=== PATIENT | male | born 1935 | race Caucasian/White ===

== ENCOUNTER 2018-03-13 19:58 | Inpatient (IN) ==
--- NOTE | 2018-03-13 21:01 | Emergency Department Note ---
Disposition Clinical Impression: Anemia Qualifiers: Anemia type: unspecified type Qualified Code(s): D64.9 - Anemia, unspecified Altered mental status Qualifiers: Altered mental status type: unspecified Qualified Code(s): R41.82 - Altered mental status, unspecified GI bleed Qualifiers: GI bleed type/associated pathology: unspecified gastrointestinal hemorrhage type Qualified Code(s): K92.2 - Gastrointestinal hemorrhage, unspecified Disposition: Admitted As Inpatient Condition: Fair Referrals: Arias Ch Jr, MD [Primary Care Provider] - Forms: ED Satisfaction Letter Time of Disposition: 22:34 General Adult HPI - General Chief complaint: ED Syncope Stated complaint: Bloody Stool Time Seen by Provider: 03/13/18 20:20 Source: patient, family, EMS Limitations: no limitations Nursing Notes Reviewed: Yes Vital Signs Reviewed: Yes - History of Present Illness HPI Narrative: Patient is an 82-year-old male that presents the emergency department due to altered mental status and blood in his stool. Patient states he is unsure why he is here at the emergency department however the daughter that is here in the emergency department with him states that today he began saying things that did not make sense and was acting differently. Family also reports that he did have some dark bloody stools today. Family states that he has never had dark bloody stools before they state that he has had bright red blood in his stool in the past which was due to hemorrhoids. Patient states that he has had a previous stroke which affected his left side. Patient states that he has not having any pain at this time however he states that he does not feel like he can eat due to not feeling very well but family states that he has been feeling nauseated and is afraid to eat because he feels like he is going to throw up. Pain Scale: 5 - Related Data Home Medications Medication Instructions Recorded Confirmed Aspirin [Lo-Dose Aspirin EC] 81 mg PO DAILY 02/17/18 02/17/18 Atorvastatin Calcium 80 mg PO HS 02/17/18 02/17/18 Clopidogrel [Plavix] 75 mg PO DAILY 02/17/18 02/17/18 Furosemide [Lasix] 40 mg PO DAILY 02/17/18 02/17/18 Gabapentin [Neurontin] 300 mg PO BID 02/17/18 02/17/18 Insulin ASPART [Novolog Flexpen] 0 units SQ TID 02/17/18 02/17/18 Insulin Glargine,Hum.rec.anlog 32 units SQ DAILY 02/17/18 02/17/18 [Lantus Solostar] Losartan Potassium [Cozaar] 100 mg PO DAILY 02/17/18 02/17/18 Metoprolol Tartrate [Lopressor] 50 mg PO BID 02/17/18 02/17/18 Potassium 99 mg PO DAILY 02/17/18 02/17/18 Tramadol HCl [Ultram] 50 mg PO BID PRN 02/17/18 02/17/18 Vit C/E/Zn/Coppr/Lutein/Zeaxan 1 cap PO DAILY 02/17/18 02/17/18 [Preservision Areds 2 Softgel] hydrALAZINE [HydrALAZINE] 10 mg PO TID 02/17/18 02/17/18 hydroCHLOROthiazide 25 mg PO DAILY 02/17/18 02/17/18 [Hydrochlorothiazide] Allergies Allergy/AdvReac Type Severity Reaction Status Date / Time iodine Allergy See Verified 02/17/18 12:08 Comments All systems ED: reviewed and negative except as stated. Constitutional: Reports: other (States that he generally does not feel well) Respiratory: Denies: dyspnea Gastrointestinal: Reports: nausea, vomiting, melena Past Medical History - Past Medical History Medical history: Reports: arthritis, coronary artery disease, CVA, diabetes, hyperlipidemia, hypertension, kidney stones, myocardial infarction Surgical history: Reports: angioplasty/stent, coronary bypass (CABG) Psychiatric history: Reports: no psych history - Social History Smoking Status: Unknown if ever smoked Smokeless Tobacco Status: No Alcohol use: Reports: none Drug use: Reports: none Physical Exam - General Limitations: no limitations General appearance: alert, in no apparent distress - Head Head exam: atraumatic, normocephalic - Eye Eye exam: Present: normal appearance, EOMI - Neck Neck exam: Present: normal inspection, full ROM, trachea midline - Respiratory Respiratory exam: Present: normal lung sounds bilaterally. Absent: respiratory distress, wheezes - Cardiovascular Cardiovascular exam: Present: normal rhythm, tachycardia, normal heart sounds, + S1, +S2 - Abdominal Exam Abdominal exam: Present: soft, Non-Tender, normal bowel sounds - Neurological Exam Neurological exam: Present: alert. Absent: oriented X3 (Patient is not oriented to time) - Expanded Neurological Exam Patient oriented to: Present: person, place. Absent: time Speech: Present: fluid speech Cranial nerves: EOM function (II, III, IV, ): Normal, facial sensation (V): Normal, facial palsy (VII): Normal, gag reflex (IX): Normal, spinal accessory function (XI): Normal, tongue deviation (XII): Normal Motor strength - LUE: 5/5 Motor strength - RUE: 5/5 Motor strength - LLE: 4/5 (Patient states that he has had a previous stroke that has affected his left side.) Motor strength - RLE: 5/5 - Psychiatric Psychiatric exam: Present: normal affect, normal mood - Skin Skin exam: Present: warm, dry, intact Course Vital Signs Temperature 98 F 03/13/18 20:04 Pulse Rate 100 03/13/18 20:04 Respiratory Rate 20 03/13/18 20:04 Blood Pressure 145/64 03/13/18 20:04 O2 Sat by Pulse Oximetry 94 03/13/18 20:04 Temperature 98 F 03/13/18 20:04 Pulse Rate 98 03/13/18 21:59 Respiratory Rate 16 03/13/18 21:59 Blood Pressure 140/61 03/13/18 21:59 O2 Sat by Pulse Oximetry 95 03/13/18 21:59 Oxygen Delivery Oxygen Delivery Room Air Medical Decision Making - MDM Narrative Medical decision making narrative: Due to the patient presented with altered mental status and possible GI bleed we will obtain a CBC, BMP, PT/INR, urinalysis EKG, chest x-ray and a CT of the head. The CT of the head showed no acute intracranial abnormality. The patient 's hemoglobin is now 7.9 however it had been 11.8 on 02/23/18. The urinalysis was negative for any infection. The chest x-ray showed no acute process. The patient will need to be admitted to the hospital for further evaluation and management. I called and spoke with the hospitalist who requested that we call and speak to who was ever on for active bleed. I called and spoke with Dr. Momin and she did not feel that there was anything to be done tonight and that she would see the patient in the morning. Patient will be given protonix here in the ED. I called and spoke with the hospitals that except the patient to their service. The patient be admitted to the hospital at this time for further evaluation and management. - Lab Data Lab results reviewed: Yes I reviewed the patient's lab results. Result diagrams: 03/13/18 21:26 03/13/18 21: Lab Results 03/13/18 03/13/18 03/13/18 Range/Units 21:02 21:26 21:26 WBC 11.8 H (4.3-11.1) K/mcL RBC 2.48 L (4.19-5.50) M/mcL Hgb 7.9 L (12.9-16.9) g/dL Hct 24.0 L (37.5-50.1) % MCV 96.8 (83.0-100.0) fL MCH 31.9 (28.0-33.3) pg MCHC 32.9 (31.6-35.5) g/dL RDW 14.8 H (11.5-14.5) % Plt Count 144 (140-400) K/mcL MPV 12.0 (9.4-12.4) fL Immature Gran % 0.6 (0-4) % Seg Neutrophils % 77.1 % Lymphocytes % 16.9 % Monocytes % 5.1 % Eosinophils % 0.1 % Basophils % 0.2 % Neutrophils # 9.1 H (1.6-8.9) K/mcL Lymphocytes # 2.0 (0.6-4.6) K/mcL Monocytes # 0.6 (0.0-1.3) K/mcL Eosinophils # 0.0 (0.0-0.6) K/mcL Basophils # 0.0 (0.0-0.2) K/mcL PT 12.8 H (9.4-12.1) Seconds INR 1.2 Sodium (136-145) mEq/L Potassium (3.5-5.1) mEq/L Chloride (98-107) mEq/L Carbon Dioxide (23-29) mEq/L BUN (8-23) mg/dL Creatinine (0.70-1.30) mg/dL Est GFR ( Amer) (> 60) Est GFR (Non-Af Amer) (> 60) BUN/Creatinine Ratio (6-26) Glucose (70-105) mg/dL Calculated Osmolality (280-300) Calcium (8.6-10.3) mg/dL Urine Color Yellow (Yellow) Urine Clarity Clear (Clear) Urine pH 5.5 (5.0-8.0) pH Units Ur Specific [place] 1.023 (1.010-1.025) Urine Protein Negative (Neg-Trace) mg/dL Urine Glucose (UA) Normal (Normal) mg/dL Urine Ketones Negative (Negative) mg/dL Urine Blood Negative (Negative) Urine Nitrite Negative (Negative) Urine Bilirubin Negative (Negative) Urine Urobilinogen Normal (Normal) mg/dL Ur Leukocyte Esterase Negative (Negative) Blood Type Antibody Screen 03/13/18 03/13/18 Range/Units 21:26 21:26 WBC (4.3-11.1) K/mcL RBC (4.19-5.50) M/mcL Hgb (12.9-16.9) g/dL Hct (37.5-50.1) % MCV (83.0-100.0) fL MCH (28.0-33.3) pg MCHC (31.6-35.5) g/dL RDW (11.5-14.5) % Plt Count (140-400) K/mcL MPV (9.4-12.4) fL Immature Gran % (0-4) % Seg Neutrophils % % Lymphocytes % % Monocytes % % Eosinophils % % Basophils % % Neutrophils # (1.6-8.9) K/mcL Lymphocytes # (0.6-4.6) K/mcL Monocytes # (0.0-1.3) K/mcL Eosinophils # (0.0-0.6) K/mcL Basophils # (0.0-0.2) K/mcL PT (9.4-12.1) Seconds INR Sodium 140 (136-145) mEq/L Potassium 4.4 (3.5-5.1) mEq/L Chloride 109 H (98-107) mEq/L Carbon Dioxide 22 L (23-29) mEq/L BUN 99 H (8-23) mg/dL Creatinine 1.79 H (0.70-1.30) mg/dL Est GFR ( Amer) 44 L (> 60) Est GFR (Non-Af Amer) 36 L (> 60) BUN/Creatinine Ratio 55 H (6-26) Glucose 283 H (70-105) mg/dL Calculated Osmolality 331 H (280-300) Calcium 9.5 (8.6-10.3) mg/dL Urine Color (Yellow) Urine Clarity (Clear) Urine pH (5.0-8.0) pH Units Ur Specific [place] (1.010-1.025) Urine Protein (Neg-Trace) mg/dL Urine Glucose (UA) (Normal) mg/dL Urine Ketones (Negative) mg/dL Urine Blood (Negative) Urine Nitrite (Negative) Urine Bilirubin (Negative) Urine Urobilinogen (Normal) mg/dL Ur Leukocyte Esterase (Negative) Blood Type O POSITIVE Antibody Screen NEGATIVE - Radiology Data Radiology results reviewed: Yes I reviewed the patient's radiology results. Chest X-Ray 03/13/18 20:20 IMPRESSION: No acute process. D/ / Chalo Fuller MD / Chalo Fuller MD Interpreting Provider: Chalo Fuller MD Head CT 03/13/18 20:21 IMPRESSION: No acute intracranial abnormality. Old left frontotemporal region infarct. Left chronic maxillary sinusitis. D/ / Barber Manley MD / Barber Manley MD Interpreting Provider: Barber Manley MD - EKG Data EKG #1 EKG attestation: Yes I reviewed and interpreted this EKG. EKG results narrative: EKG shows a sinus tachycardia at a rate of 100 bpm, ND interval 159, Q's duration of 91, QTC of 385 with a normal axis. There is no evidence of STEMI and EKG.
[2018-03-13 21:18] LABS: Bilirubin,Urine Negative (Negative); Blood,Urine Negative (Negative); Clarity,Urine Clear (Clear); Color,Urine Yellow (Yellow); Glucose,Urine (UA) Normal (Normal); Ketones,Urine Negative (Negative); Leukocyte Esterase,Urine Negative (Negative); Nitrite,Urine Negative (Negative); PH,Urine 5.5 pH Units (5.0-8.0); Protein,Urine Negative (Neg-Trace); Specific Gravity,Urine 1.023 (1.010-1.025); Urobilinogen,Urine Normal (Normal)
[2018-03-13 21:38] LABS: Basophils % 0.2 %; Eosinophils % 0.1 %; Immature Granulocytes % 0.6 % (0-4); Lymphocytes % 16.9 %; Mean Corpuscular HGB Conc 32.9 g/dL (31.6-35.5); Mean Corpuscular Hemoglobin 31.9 pg (28.0-33.3); Mean Corpuscular Volume 96.8 fL (83.0-100.0); Monocytes # 0.6 K/mcL (0.0-1.3); Monocytes % 5.1 %; Neutrophils # 9.1 K/mcL (1.6-8.9); Platelet Count 144 K/mcL (140-400); Red Blood Count 2.48 M/mcL (4.19-5.50); Red Cell Distribution Width 14.8 % (11.5-14.5); Segmented Neutrophils % 77.1 %
[2018-03-13 21:47] LABS: INR 1.2; Prothrombin Time 12.8 Seconds (9.4-12.1)
[2018-03-13 22:02] LABS: Calcium 9.5 mg/dL (8.6-10.3); Potassium 4.4 mEq/L (3.5-5.1)
[2018-03-13 22:03] LABS: Hemoglobin 7.9 g/dL (12.9-16.9)
[2018-03-13] MEDS ORDERED: Pantoprazole 40 MG VIAL IVP ONE (23:16)
[2018-03-13] MEDS ORDERED: traMADol 50 MG TABLET PO ONE (23:28)
[2018-03-14] MEDS ORDERED: Gabapentin 300 MG CAPSULE PO SCH (00:45)
[2018-03-14] MEDS ORDERED: *HR* Dextrose 50 % in Water (Syg) 50 ML SYRINGE IVP PRN (00:47)
[2018-03-14] MEDS ORDERED: Dextrose Gel 15 GM/37.5 ML TUBE PO PRN ×2 (00:47)
[2018-03-14] MEDS ORDERED: D5% in Water 1,000 ML IVC PRN (00:47)
--- NOTE | 2018-03-14 00:55 | Internal Med History&Physical ---
<Viv Alvarez H - Last Filed: 03/14/18 00:58> Date of Encounter: 03/14/18 Time of Encounter: 00:52 Internal Medicine - H&P: HPI Chief complaint: GI Bleed Admitted From: Emergency Dept Plans for Post Hospital Care: Home History of present illness: Mr. Manley is a 82 year old male with past medical history of CAD, CVA, DM 2, HLD, HTN, chronic kidney disease, MO /SP 3 stents and CABG, and CKD WHO PRESENTS TO [facility] ON 03/13/2018 WITH CHIEF COMPLAINTS OF NEW ONSET BLEEDING PER RECTUM. Per patient and patient's family at bedside, patient developed abdominal pain and cramping with bloody dark stool this evening. When patient's daughter arrived at his house, he was too weak to get off the toilet. His underwear were soaked with dark bloody stool. They presented to the emergency department around 8 PM. Patient denies any bowel movements since that time. Patient's daughter states patient has never had a colonoscopy, nor has he had a history of dark melanotic stools. He has only had bright red blood in his stool in the past which was attributed to hemorrhoids. Patient had a CVA in 2016 and has been taking Plavix ever since. Currently, patient is resting in apparent moderate distress. He has a stutter which his family states is exacerbated by anxiety and stress. Patient lost his one month ago. He reports he is freezing. Patient denies current nausea or vomiting. He does report hematochezia and melena. He reports fatigue, dizziness, and lightheadedness. He denies dysuria, hematuria, or urinary urgency. Past Med Surg Social Fam HX - Past Medical History Attestation: Yes The following information was validated with the patient. Source: patient, old records reviewed, obtained from family Medical history: arthritis, coronary artery disease, CVA, diabetes, hyperlipidemia, hypertension, kidney stones, myocardial infarction Psychiatric history: no psych history - Past Surgical History Surgical History: angioplasty/stent, coronary bypass (CABG) - Social History Smoking Status: Unknown if ever smoked Smokeless Tobacco Status: No Alcohol use: none Drug use: none Internal Medicine - H&P: Meds Aspirin [Lo-Dose Aspirin EC] 81 mg PO DAILY 02/17/18 [History] Atorvastatin Calcium 80 mg PO DAILY 02/17/18 [History] Clopidogrel [Plavix] 75 mg PO DAILY 02/17/18 [History] Furosemide [Lasix] 40 mg PO DAILY 02/17/18 [History] Gabapentin [Neurontin] 300 mg PO BID 02/17/18 [History] Insulin ASPART [Novolog Flexpen] 0 units SQ TID 02/17/18 [History] Insulin Glargine,Hum.rec.anlog [Lantus Solostar] 32 units SQ DAILY 02/17/18 [ History] Losartan Potassium [Cozaar] 100 mg PO DAILY 02/17/18 [History] Potassium 99 mg PO DAILY 02/17/18 [History] Tramadol HCl [Ultram] 50 mg PO BID PRN 02/17/18 [History] Vit C/E/Zn/Coppr/Lutein/Zeaxan [Preservision Areds 2 Softgel] 1 cap PO DAILY [History] Docusate [Colace] 100 mg PO DAILY 03/14/18 [History] Metoprolol Succinate [Toprol Xl] 50 mg PO BID 03/14/18 [History] 3 Allergy/AdvReac Type Severity Reaction Status Date / Time iodine Allergy See Verified 02/17/18 12:08 Comments All Systems PM: A 10-system review of systems was performed and is negative for pertinent findings except as documented above in the HPI. - Constitutional Constitutional: chills, lethargy, weakness, no fever(s), no night sweats, no weight gain, no weight loss - EENT Nose, mouth and throat: no nasal congestion, no nasal discharge, no sinus pressure - Cardiovascular Cardiovascular ROS IM: dyspnea, dyspnea on exertion, lightheadedness, no chest pain, no claudication, no diaphoresis, no edema, no irregular heart rhythm, no orthopnea, no palpitations, no paroxysmal nocturnal dyspnea, no syncope - Respiratory Respiratory: no cough, no dyspnea, no chest congestion - Gastrointestinal Gastrointestinal: abdominal pain (epigastric/mid upper abdominal), heartburn, hematochezia, loose stools, melena, no coffee ground emesis, no constipation, no diarrhea, no hematemesis, no vomiting - Genitourinary Genitourinary ROS male: no difficulty urinating, no dysuria, no urinary frequency, no urinary hesitancy - Integumentary Integumentary IM: no rash, no jaundice - Neurological Neurological ROS: focal weakness (patient has residual left sided weakness secondary to CVA 2 years ago) - Psychiatric Psychiatric: depression - Constitutional Vitals: Temp Pulse Resp BP Pulse Ox 98.6 F 94 17 142/62 95 03/14/18 00:41 03/14/18 00:41 03/14/18 00:41 03/14/18 00:41 03/14/18 00:41 General appearance: Present: cooperative, mild distress, A&O X 3, pleasant, answers questions appropriately - Head Head exam: Present: atraumatic, normocephalic - Eye Eye exam: Present: sclera anicteric - Neck Neck exam general surgery: Present: supple, trachea midline. Absent: lymphadenopathy - Respiratory Respiratory exam: Present: CTAB. Absent: accessory muscle use, rales, rhonchi, wheezes - Cardiovascular Cardiovascular exam: Present: +S1, +S2, tachycardia. Absent: diastolic murmur, gallop, rubs, systolic murmur - GI/Abdominal GI/Abdominal exam: Present: normal bowel sounds, soft, tenderness (epigastric/ upper mid abdominal), no peritoneal signs. Absent: distended, firm, guarding, rebound, rigid - Extremities Exam Extremities exam: Present: pedal edema (1+), warm, radial pulses palpable and symmetrical. Absent: calf tenderness, cyanotic Additional comments: Left upper extremity in a slight from recent operation - Neurological Exam Neurological exam: Present: alert, CN II-XII intact, oriented X3. Absent: strengths equal and symetr throughout (Patient with diminished strength in left upper extremity), pronater drift, facial droop, speech deficit Internal Med - H&P Results - Labs CBC & Chem 7: 03/13/18 21:26 03/13/18 21:26 - Assessment and plan (1) GI bleed Current Visit: Yes Status: Acute Assessment and plan: 82-year-old male with multiple medical comorbidities here with acute onset bleeding and melanotic stools. Hgb 7.9 and BUN 99, suspect rapid transit upper GI bleed. -Patient with signs and symptoms of acute blood loss anemia. -Consult to on-call GI provider this weekend from the emergency department. -Patient made NPO. -Transfuse 2 units PRBCs -Gentle hydration at 75 mg per hour as patient with history of chronic kidney disease and CHF. -Hold home medications including Plavix. -Pantoprazole drip. -Telemetry, Q1hr vitals, Q4 hour H&H. Qualifiers: GI bleed type/associated pathology: unspecified gastrointestinal hemorrhage type Qualified Code(s): K92.2 - Gastrointestinal hemorrhage, unspecified (2) Acute blood loss anemia Current Visit: Yes Status: Acute Assessment and plan: See plan above under GI bleed. (3) CAD (coronary artery disease) Current Visit: Yes Status: Acute Assessment and plan: Hold home medications for now. Qualifiers: Coronary Disease-Associated Artery/Lesion type: unspecified vessel or lesion type [place] vs. transplanted heart: [place] heart Associated angina: without angina Qualified Code(s): I25.10 - Atherosclerotic heart disease of [place] coronary artery without angina pectoris (4) HTN (hypertension) Current Visit: Yes Status: Acute Assessment and plan: Hold all medications for now. Qualifiers: Hypertension type: essential hypertension Qualified Code(s): I10 - Essential (primary) hypertension (5) Diabetes Current Visit: Yes Status: Chronic Assessment and plan: We will start patient on medium dose sliding scale insulin coverage and ACHS Accu-Cheks. 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: with half-way use Diabetes mellitus complication status: with kidney complications Diabetes mellitus complication detail: with chronic kidney disease Chronic kidney disease stage: unspecified stage Qualified Code(s): E11.22 - Type 2 diabetes mellitus with diabetic chronic kidney disease; Z79.4 - [facility] (current) use of insulin; Z79.4 - [facility] (current) use of insulin; Z79.4 - [facility] (current) use of insulin; Z79.4 - [facility] (current) use of insulin (6) History of CVA (cerebrovascular accident) Current Visit: Yes Status: Acute Assessment and plan: Hold plavix. (7) H/O elbow surgery Current Visit: Yes Status: Acute Assessment and plan: Elbow excision/surgery in January 2018. -Patient still in sling. -supportive nursing care. - Time Spent With Patient Total time spent is greater than 50% in coordination of care (as documented) at patient's floor/unit and/or counseling patient: <Rupert Wells - Last Filed: 03/14/18 06:01> Date of Encounter: 03/14/18 Internal Medicine - H&P: [facility] History of present illness: Mr. Manley is a 82 year old male All Systems PM: A 10-system review of systems was performed and is negative for pertinent findings except as documented above in the HPI. - Constitutional Vitals: Temp Pulse Resp BP Pulse Ox 98.0 F 79 14 122/62 97 03/14/18 04:56 03/14/18 04:56 03/14/18 04:56 03/14/18 04:56 03/14/18 04:56 Internal Med - H&P Results - Labs CBC & Chem 7: 03/14/18 04:30 03/13/18 21:26 Labs: Short CBC 03/14/18 03/14/18 Range/Units 01:21 04:30 WBC 10.0 (4.3-11.1) K/mcL Hgb 6.7 L 7.5 L (12.9-16.9) g/dL Hct 21.4 L 23.1 L (37.5-50.1) % Plt Count 118 L (140-400) K/mcL Neutrophils # 7.1 (1.6-8.9) K/mcL - Attending Attestation I have seen and examined this patient independently. I have discussed with resident physician Dr. Castañeda regarding the management plan. Agree with the documentation. - Assessment and plan (1) GI bleed Current Visit: Yes Status: Acute Qualifiers: GI bleed type/associated pathology: unspecified gastrointestinal hemorrhage type Qualified Code(s): K92.2 - Gastrointestinal hemorrhage, unspecified (2) Acute blood loss anemia Current Visit: Yes Status: Acute (3) CAD (coronary artery disease) Current Visit: Yes Status: Acute Qualifiers: Coronary Disease-Associated Artery/Lesion type: unspecified vessel or lesion type [place] vs. transplanted heart: [place] heart Associated angina: without angina Qualified Code(s): I25.10 - Atherosclerotic heart disease of [place] coronary artery without angina pectoris (4) HTN (hypertension) Current Visit: Yes Status: Acute Qualifiers: Hypertension type: essential hypertension Qualified Code(s): I10 - Essential (primary) hypertension (5) Diabetes Current Visit: Yes Status: Chronic 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: with rat exterminator use Diabetes mellitus complication status: with kidney complications Diabetes mellitus complication detail: with chronic kidney disease Chronic kidney disease stage: unspecified stage Qualified Code(s): E11.22 - Type 2 diabetes mellitus with diabetic chronic kidney disease; Z79.4 - [facility] (current) use of insulin; Z79.4 - [facility] (current) use of insulin; Z79.4 - [facility] (current) use of insulin; Z79.4 - [employer] (current) use of insulin (6) History of CVA (cerebrovascular accident) Current Visit: Yes Status: Acute (7) H/O elbow surgery Current Visit: Yes Status: Acute - Time Spent With Patient Total time spent is greater than 50% in coordination of care (as documented) at patient's floor/unit and/or counseling patient:
[2018-03-14] MEDS ORDERED: 0.9 % Sodium Chloride 250 ML ONE ×2 (01:26→04:39)
[2018-03-14] MEDS: Pantoprazole 40 MG in 0.9 % Sodium Chloride Mini Bag 100 ML IVC SCH ×2 (01:41→06:20)
[2018-03-14 02:04] LABS: Hematocrit 21.4 % (37.5-50.1); Hemoglobin 6.7 g/dL (12.9-16.9)
[2018-03-14] MEDS ORDERED: Gabapentin 300 MG CAPSULE PO ONE ×2 (02:12→13:44)
[2018-03-14] MEDS ORDERED: Ondansetron 4 MG/2 ML VIAL IVP PRN (02:33)
[2018-03-14 04:54] LABS: Basophils % 0.3 %; Eosinophils % 0.3 %; Hematocrit 23.1 % (37.5-50.1); Hemoglobin 7.5 g/dL (12.9-16.9); Immature Granulocytes % 0.4 % (0-4); Lymphocytes # 2.2 K/mcL (0.6-4.6); Lymphocytes % 21.4 %; Mean Corpuscular HGB Conc 32.5 g/dL (31.6-35.5); Mean Corpuscular Hemoglobin 31.1 pg (28.0-33.3); Mean Corpuscular Volume 95.9 fL (83.0-100.0); Monocytes # 0.7 K/mcL (0.0-1.3); Monocytes % 7.1 %; Neutrophils # 7.1 K/mcL (1.6-8.9); Platelet Count 118 K/mcL (140-400); Red Blood Count 2.41 M/mcL (4.19-5.50); Red Cell Distribution Width 14.4 % (11.5-14.5); Segmented Neutrophils % 70.5 %
[2018-03-14] MEDS: Insulin LISPRO 300 UNITS/3 ML VIAL SQ SCH ×3 (06:57→17:57)
[2018-03-14] MEDS ORDERED: Insulin LISPRO 300 UNITS/3 ML VIAL SQ SCH (07:30)
[2018-03-14 08:41] LABS: Hematocrit 25.8 % (37.5-50.1); Hemoglobin 8.5 g/dL (12.9-16.9)
--- NOTE | 2018-03-14 08:42 | General Surgery Progress Note ---
Date of Encounter: 03/14/18 Objective Vital Signs - Last 8 Hours Temp Pulse Resp BP Pulse Ox 03/14/18 07:40 97.7 F 82 16 125/62 92 Intake and Output 03/13/18 03/14/18 03/14/18 23:59 07:59 15:59 Intake Total 800 / 1500 Balance 800 / 1150 Intake: IV Fluids 100 / 100 Protonix 40 MG In 0.9 % Sodium 100 / 100 Chloride (Mini-Bag +) 100 ML @ 20 mls/hr IVC .Q5H JESSICA Rx#: [id number] Blood Product 700 / 1050 Rbcs Leuko Poor As-1 Unit 700 / 1050 [id number] Other: Blood Glucose* 221 - Labs 03/14/18 04:30 03/13/18 21:26 Consult Discharge Plan - Plan Referrals: Arias Ch Jr, MD [Primary Care Provider] -
--- NOTE | 2018-03-14 08:43 | General Surgery Consult Note ---
<Stoney Johnson - Last Filed: 03/14/18 10:36> Date of Encounter: 03/14/18 Assessment and Plan (1) Acute blood loss anemia Current Visit: Yes Status: Acute 1 day new onset blood in stool Not on anticoagulation No hx colonoscopy VSS Plan: EGD/Colonoscopy with Dr. Momin Thursday 03/15 Will initiate bowel prep and clear liquid diet today Past Med Surg Social Fam HX - Past Medical History Medical history: arthritis, coronary artery disease, CVA, diabetes, hyperlipidemia, hypertension, kidney stones, myocardial infarction Psychiatric history: no psych history - Past Surgical History Surgical History: angioplasty/stent, coronary bypass (CABG) - Social History Smoking Status: Unknown if ever smoked Smokeless Tobacco Status: No Alcohol use: none Drug use: none Medications and Allergies Aspirin [Lo-Dose Aspirin EC] 81 mg PO DAILY 02/17/18 [History] Atorvastatin Calcium 80 mg PO DAILY 02/17/18 [History] Clopidogrel [Plavix] 75 mg PO DAILY 02/17/18 [History] Furosemide [Lasix] 40 mg PO DAILY 02/17/18 [History] Gabapentin [Neurontin] 300 mg PO BID 02/17/18 [History] Insulin ASPART [Novolog Flexpen] 0 units SQ TID 02/17/18 [History] Insulin Glargine,Hum.rec.anlog [Lantus Solostar] 32 units SQ DAILY 02/17/18 [ History] Losartan Potassium [Cozaar] 100 mg PO DAILY 02/17/18 [History] Potassium 99 mg PO DAILY 02/17/18 [History] Tramadol HCl [Ultram] 50 mg PO BID PRN 02/17/18 [History] Vit C/E/Zn/Coppr/Lutein/Zeaxan [Preservision Areds 2 Softgel] 1 cap PO DAILY [History] Docusate [Colace] 100 mg PO DAILY 03/14/18 [History] Metoprolol Succinate [Toprol Xl] 50 mg PO BID 03/14/18 [History] 3 Allergy/AdvReac Type Severity Reaction Status Date / Time iodine Allergy See Verified 02/17/18 12:08 Comments Review of Systems All systems PM: The remainder of the systems were reviewed and are negative General Surgery Exam Initial Vital Signs Temp Pulse Resp BP Pulse Ox 98 F 100 20 145/64 94 03/13/18 20:04 04/13/18 20:04 03/13/18 20:04 03/13/18 20:04 03/13/18 20:04 Exam Initial Vital Signs Temp Pulse Resp BP Pulse Ox 98 F 100 20 145/64 94 03/13/18 20:04 03/13/18 20:04 03/13/18 20:04 03/13/18 20:04 03/13/18 20:04 Results - Labs 03/14/18 08:33 03/13/18 21:26 Abnormal lab results RBC 2.41 M/mcL (4.19-5.50) L 03/14/18 04:30 Hgb 7.5 g/dL (12.9-16.9) L 03/14/18 04:30 Hct 23.1 % (37.5-50.1) L 03/14/18 04:30 Plt Count 118 K/mcL (140-400) L 03/14/18 04:30 PT 12.8 Seconds (9.4-12.1) H 03/13/18 21:26 Chloride 109 mEq/L (98-107) H 03/13/18 21:26 Carbon Dioxide 22 mEq/L (23-29) L 03/13/18 21:26 BUN 99 mg/dL (8-23) H 03/13/18 21:26 Creatinine 1.79 mg/dL (0.70-1.30) H 03/13/18 21:26 Est GFR ( Amer) 44 (> 60) L 03/13/18 21:26 Est GFR (Non-Af Amer) 36 (> 60) L 03/13/18 21:26 BUN/Creatinine Ratio 55 (6-26) H 03/13/18 21:26 Glucose 283 mg/dL (70-105) H 03/13/18 21:26 POC Glucose 221 mg/dL (70-99) H 03/14/18 06:56 Calculated Osmolality 331 (280-300) H 03/13/18 21:26 All other labs normal. Consult Discharge Plan - Plan Referrals: Arias Ch Jr, MD [Primary Care Provider] - <Joslyn Momin - Last Filed: 03/14/18 13:11> Date of Encounter: 03/14/18 Time of Encounter: 12:58 Assessment and Plan (1) Anemia Current Visit: Yes Status: Acute patient is very week and deconditioned, I do not feel he can tolerate an entire bowel prep in 1 day, will do half of bowel prep today and half tomorrow along with clears, will plan EGD/ colonoscopy this coming friday, risks and benefits discussed with patient and his daughter and they both wish to proceed. clears bowel prep PT/OT monitor Hb, transfuse as needed Qualifiers: Anemia type: unspecified type Qualified Code(s): D64.9 - Anemia, unspecified (2) CAD (coronary artery disease) Current Visit: Yes Status: Chronic holding asa/plavix Qualifiers: Coronary Disease-Associated Artery/Lesion type: unspecified vessel or lesion type [place] vs. transplanted heart: [place] heart Associated angina: without angina Qualified Code(s): I25.10 - Atherosclerotic heart disease of [place] coronary artery without angina pectoris (3) HTN (hypertension) Current Visit: Yes Status: Chronic controlled, management per hospitalist Qualifiers: Hypertension type: essential hypertension Qualified Code(s): I10 - Essential (primary) hypertension (4) Diabetes Current Visit: Yes Status: Chronic controlled, management per hospitalist Qualifiers: Diabetes mellitus type: type 2 Diabetes mellitus correction insulin use: with correction use Diabetes mellitus complication status: with kidney complications Diabetes mellitus complication detail: with chronic kidney disease Chronic kidney disease stage: unspecified stage Qualified Code(s): E11.22 - Type 2 diabetes mellitus with diabetic chronic kidney disease; Z79.4 - terminal superintendent (current) use of insulin; Z79.4 - terminal superintendent (current) use of insulin; Z79.4 - terminal superintendent (current) use of insulin; Z79.4 - [facility] (current) use of insulin (5) History of CVA (cerebrovascular accident) Current Visit: Yes Status: Acute History of Present Illness Consult date: 03/14/18 Reason for consult: endoscopy Requesting physician: Marky Warren History of present illness: patient is seen in his hospital room with his daughter. He states he has had melanotic stools for the last few days. He states for some time (unable to tell me how long) he has been passing bright red blood from the rectum with bowel movements intermittently. He complains of mid abdominal pain (which he cant describe when prompted) for several days, pain is intermittent. Denies nausea of emesis. Patient is very poor historian. No hematemesis. Patient has had issues with constipation "for some time" and takes generic stool softeners daily while at home. Patient has never had egd or colonoscopy previously. He has no [facility] colon or rectal cancer. He fell at his wifes at beginning of january and tore his tricep from his bone, had repair. Patient does take aspirin and plavix at home, previous CVA. Past Med Surg Social Fam HX - Past Medical History Source: patient - Family History Grandmother History Unknown: Yes Review of Systems All systems PM: reviewed and no additional remarkable complaints except as stated All systems PM: The remainder of the systems were reviewed and are negative General Surgery Exam Initial Vital Signs Temp Pulse Resp BP Pulse Ox 98 F 100 20 145/64 94 03/13/18 20:04 03/13/18 20:04 03/13/18 20:04 03/13/18 20:04 03/13/18 20:04 - General physical appearance well developed, chronically ill, other (pale) - Eyes PERRL, normal ocular movement - ENT normal mucosa, normocephalic - Neck trachea midline - Respiratory normal expansion, clear to auscultation - Cardiovascular Cardiovascular exam: Present: RRR - Abdomen Abdomen general surgery: Present: bowel sounds present, soft, non tender - Integumentary Integumentary general surgery: Present: warm and dry, no abnormal pigmentation, other (pale) - Neurologic Present: CN 2-12 grossly intact - Musculoskeletal Present: other (gnerealized weakness and deconditioning) - Psychiatric Psychiatric general surgery: Present: A&Ox3 Exam Initial Vital Signs Temp Pulse Resp BP Pulse Ox 98 F 100 20 145/64 94 03/13/18 20:04 03/13/18 20:04 03/13/18 20:04 03/13/18 20:04 03/13/18 20:04 Results - Labs 03/14/18 11:21 03/14/18 11:21 Abnormal lab results RBC 2.75 M/mcL (4.19-5.50) L 03/14/18 11:21 Hgb 8.7 g/dL (12.9-16.9) L 03/14/18 11:21 Hct 26.2 % (37.5-50.1) L 03/14/18 11:21 RDW 14.8 % (11.5-14.5) H 03/14/18 11:21 Plt Count 107 K/mcL (140-400) L 03/14/18 11:21 PT 12.8 Seconds (9.4-12.1) H 03/13/18 21:26 Chloride 114 mEq/L (98-107) H 03/14/18 11:21 BUN 89 mg/dL (8-23) H 03/14/18 11:21 Creatinine 1.87 mg/dL (0.70-1.30) H 03/14/18 11:21 Est GFR ( Amer) 42 (> 60) L 03/14/18 11:21 Est GFR (Non-Af Amer) 35 (> 60) L 03/14/18 11:21 BUN/Creatinine Ratio 48 (6-26) H 03/14/18 11:21 Glucose 134 mg/dL (70-105) H 03/14/18 11:21 POC Glucose 221 mg/dL (70-99) H 03/14/18 06:56 Calculated Osmolality 325 (280-300) H 03/14/18 11:21 Diabetes panel 03/14/18 Range/Units 11:21 Sodium 143 (136-145) mEq/L Potassium 4.3 (3.5-5.1) mEq/L Chloride 114 H (98-107) mEq/L Carbon Dioxide 26 (23-29) mEq/L BUN 89 H (8-23) mg/dL Creatinine 1.87 H (0.70-1.30) mg/dL Glucose 134 H (70-105) mg/dL Calcium 9.0 (8.6-10.3) mg/dL Calcium panel 03/14/18 Range/Units 11:21 Calcium 9.0 (8.6-10.3) mg/dL Pituitary panel 03/14/18 Range/Units 11:21 Sodium 143 (136-145) mEq/L Potassium 4.3 (3.5-5.1) mEq/L Chloride 114 H (98-107) mEq/L Carbon Dioxide 26 (23-29) mEq/L BUN 89 H (8-23) mg/dL Creatinine 1.87 H (0.70-1.30) mg/dL Glucose 134 H (70-105) mg/dL Calcium 9.0 (8.6-10.3) mg/dL Adrenal panel 03/14/18 Range/Units 11:21 Sodium 143 (136-145) mEq/L Potassium 4.3 (3.5-5.1) mEq/L Chloride 114 H (98-107) mEq/L Carbon Dioxide 26 (23-29) mEq/L BUN 89 H (8-23) mg/dL Creatinine 1.87 H (0.70-1.30) mg/dL Glucose 134 H (70-105) mg/dL Calcium 9.0 (8.6-10.3) mg/dL All other labs normal.
[2018-03-14] MEDS: 0.9 % Sodium Chloride 1,000 ML IVC SCH ×2 (09:29→21:43)
[2018-03-14] MEDS ORDERED: Polyethylene Glycol 3350 255 GM POWDER PO ONE ×4 (10:33→17:30)
--- NOTE | 2018-03-14 10:50 | Internal Med Progress Note ---
<Mazin Baker - Last Filed: 03/14/18 13:13> Date of Encounter: 03/14/18 Time of Encounter: 10:46 - Assessment and plan (1) GI bleed Current Visit: Yes Status: Acute Assessment and plan: Patient has multiple day hx of blood from rectum and blood in stools. Patient is also on superintendent container terminal xarelto for previous CVA. Patient received 2 units this AM which stopped running around 7:45 AM, symptomatically has mild improvement. Patient was discussed with resident on surgery. Surgery plans to scope tomorrow. - bowel prep today, and planned scope Friday; expect hgb to have mild drop from bowel prep. - clear liquids, per surgery - hold plavix; no NSAIDS or ASA - Protonix IVP - continue tele, closely follow vitals - continue serial CBC q6hr; BMP in the AM - continue gentle hydration; balance between CKD, and CHF - give RBC if hgb is <7.0 Qualifiers: GI bleed type/associated pathology: unspecified gastrointestinal hemorrhage type Qualified Code(s): K92.2 - Gastrointestinal hemorrhage, unspecified (2) Acute blood loss anemia Current Visit: Yes Status: Acute Assessment and plan: See plan above under GI bleed. (3) CAD (coronary artery disease) Current Visit: Yes Status: Chronic Assessment and plan: Hold home medications for now. Qualifiers: Coronary Disease-Associated Artery/Lesion type: unspecified vessel or lesion type [place] vs. transplanted heart: [place] heart Associated angina: without angina Qualified Code(s): I25.10 - Atherosclerotic heart disease of [place] coronary artery without angina pectoris (4) HTN (hypertension) Current Visit: Yes Status: Chronic Assessment and plan: Hold all medications for now. Qualifiers: Hypertension type: essential hypertension Qualified Code(s): I10 - Essential (primary) hypertension (5) Diabetes Current Visit: Yes Status: Chronic Assessment and plan: We will start patient on medium dose sliding scale insulin coverage and ACHS Accu-Cheks. Qualifiers: Diabetes mellitus type: type 2 Diabetes mellitus superintendent container terminal insulin use: with superintendent container terminal use Diabetes mellitus complication status: with kidney complications Diabetes mellitus complication detail: with chronic kidney disease Chronic kidney disease stage: unspecified stage Qualified Code(s): E11.22 - Type 2 diabetes mellitus with diabetic chronic kidney disease; Z79.4 - retirement (current) use of insulin; Z79.4 - retirement (current) use of insulin; Z79.4 - superintendent container terminal (current) use of insulin; Z79.4 - retirement (current) use of insulin (6) History of CVA (cerebrovascular accident) Current Visit: Yes Status: Acute Assessment and plan: Hold plavix. (7) H/O elbow surgery Current Visit: Yes Status: Acute Assessment and plan: Elbow excision/surgery in January 2018. -Patient still in sling. -supportive nursing care. (8) Acute kidney injury superimposed on chronic kidney disease Current Visit: Yes Status: Acute Assessment and plan: Cr on admission was 1.79 and BUN of 99. Azotemia is most likely in the setting of current GI bleed. If does not resolve with GI bleed, will further workup. U /A was unremarkable. Baseline GFR is ~40 and has most likely decreased recently. - monitor renal function - strict I/O - avoid nephrotoxins - gentle hydration (do not want to exacerbate CHF) (9) CHF (congestive heart failure) Current Visit: Yes Status: Acute Assessment and plan: Patient has known history of CHF. All medications are held for now. - Continue tele monitoring - serial volume status evaluations - gentle hydrations (balance between CHF and CHEVY) Qualifiers: Qualified Code(s): I50.9 - Heart failure, unspecified (10) DVT prophylaxis Current Visit: Yes Status: Acute Assessment and plan: Mechanical 2/2 setting of GI bleed (11) Neuropathy Current Visit: Yes Status: Acute Assessment and plan: nurse notified that patient has burning in legs. Will restart home gabapentin. - Time Spent With Patient Total time spent is greater than 50% in coordination of care (as documented) at patient's floor/unit and/or counseling patient: - Subjective Interval history: Mr Manley is an 82 yo M w/ pmh of CAD, CVA on plavix, T2DM HLD, HTN, CKD, IA w / 3 stents + CABG who presented to [facility] with extreme tiredness that started about 3 days prior to coming to the hospital and 1 day of heavy blood stools. In ED his hgb was 7.9. He was transfused 2 unit prbc this AM, and he reports still feeling tired. Patient is seen and examined. Patient denies chest pain, sob, abdominal pain, nausea, vomiting, coughing up blood, or blood in his urine. All other ROS are negative - Constitutional Vitals: Temp Pulse Resp BP Pulse Ox 97.7 F 82 16 125/62 92 03/14/18 07:40 03/14/18 07:40 03/14/18 07:40 03/14/18 07:40 03/14/18 07:40 General appearance: Present: cooperative, mild distress, A&O X 3, pleasant, obese, answers questions appropriately - Head Additional comments: grossly pale appearing - Respiratory Respiratory exam: Present: CTAB - Cardiovascular Cardiovascular exam: Present: RRR - GI/Abdominal GI/Abdominal exam: Present: hypoactive bowel sounds. Absent: guarding, rebound - Extremities Exam Extremities exam: Absent: pedal edema Internal Medicine: Result - Labs CBC & Chem 7: 03/14/18 11:21 03/14/18 11:21 Labs: Short CBC 03/14/18 Range/Units 08:33 Hgb 8.5 L (12.9-16.9) g/dL Hct 25.8 L (37.5-50.1) % - ABG Interpretation ABG results: PT/INR, D-dimer PT 12.8 Seconds (9.4-12.1) H 03/13/18 21:26 Consult Discharge Plan - Plan Referrals: Arias Ch Jr, MD [Primary Care Provider] - <Kulwinder Quigley - Last Filed: 03/14/18 18:50> Date of Encounter: 03/14/18 - Assessment and plan (1) GI bleed Current Visit: Yes Status: Acute Qualifiers: GI bleed type/associated pathology: unspecified gastrointestinal hemorrhage type Qualified Code(s): K92.2 - Gastrointestinal hemorrhage, unspecified (2) Acute blood loss anemia Current Visit: Yes Status: Acute (3) CAD (coronary artery disease) Current Visit: Yes Status: Chronic Qualifiers: Coronary Disease-Associated Artery/Lesion type: unspecified vessel or lesion type [place] vs. transplanted heart: [place] heart Associated angina: without angina Qualified Code(s): I25.10 - Atherosclerotic heart disease of [place] coronary artery without angina pectoris (4) HTN (hypertension) Current Visit: Yes Status: Chronic Qualifiers: Hypertension type: essential hypertension Qualified Code(s): I10 - Essential (primary) hypertension (5) Diabetes Current Visit: Yes Status: Chronic Qualifiers: Diabetes mellitus type: type 2 Diabetes mellitus alf insulin use: with alf use Diabetes mellitus complication status: with kidney complications Diabetes mellitus complication detail: with chronic kidney disease Chronic kidney disease stage: unspecified stage Qualified Code(s): E11.22 - Type 2 diabetes mellitus with diabetic chronic kidney disease; Z79.4 - superintendent container terminal (current) use of insulin; Z79.4 - retirement (current) use of insulin; Z79.4 - superintendent container terminal (current) use of insulin; Z79.4 - retirement (current) use of insulin (6) History of CVA (cerebrovascular accident) Current Visit: Yes Status: Acute (7) H/O elbow surgery Current Visit: Yes Status: Acute (8) Acute kidney injury superimposed on chronic kidney disease Current Visit: Yes Status: Acute (9) CHF (congestive heart failure) Current Visit: Yes Status: Acute Qualifiers: Qualified Code(s): I50.9 - Heart failure, unspecified (10) DVT prophylaxis Current Visit: Yes Status: Acute (11) Neuropathy Current Visit: Yes Status: Acute - Time Spent With Patient Total time spent is greater than 50% in coordination of care (as documented) at patient's floor/unit and/or counseling patient: - Constitutional Vitals: Temp Pulse Resp BP Pulse Ox 98.5 F 74 16 134/61 99 03/14/18 15:41 03/14/18 15:41 03/14/18 15:41 03/14/18 15:41 03/14/18 15:41 Internal Medicine: Result - Labs CBC & Chem 7: 03/14/18 18:03 03/14/18 11:21 Labs: Short CBC 03/14/18 03/14/18 03/14/18 Range/Units 08:33 11:21 18:03 WBC 8.9 7.9 (4.3-11.1) K/mcL Hgb 8.5 L 8.7 L 8.4 L (12.9-16.9) g/dL Hct 25.8 L 26.2 L 25.4 L (37.5-50.1) % Plt Count 107 L 109 L (140-400) K/mcL BMP 03/14/18 11:21 Sodium 143 Potassium 4.3 Chloride 114 H Carbon Dioxide 26 BUN 89 H Creatinine 1.87 H Glucose 134 H Calcium 9.0 - ABG Interpretation ABG results: PT/INR, D-dimer PT 12.8 Seconds (9.4-12.1) H 03/13/18 21:26 - Attending Attestation I examined this patient and my medical decision-making was reviewed with the Resident Physician on 03/14/18. I agree with the documented findings, disposition and treatment plan as described except to the extent set forth below. Mr Manley was admitted earlier today with acute GI bleed. He is hemodynamically stable at this time. He is taking prep for colonoscopy on Friday. Exam alert Comfortable Mucus membranes dry Heart not tachy Plan Colonoscopy Friday.
[2018-03-14] MEDS: Pantoprazole 40 MG VIAL IVP SCH (11:14)
[2018-03-14 11:34] LABS: Hematocrit 26.2 % (37.5-50.1); Hemoglobin 8.7 g/dL (12.9-16.9); Mean Corpuscular HGB Conc 33.2 g/dL (31.6-35.5); Mean Corpuscular Hemoglobin 31.6 pg (28.0-33.3); Mean Corpuscular Volume 95.3 fL (83.0-100.0); Mean Platelet Volume 11.6 fL (9.4-12.4); Platelet Count 107 K/mcL (140-400); Red Blood Count 2.75 M/mcL (4.19-5.50); Red Cell Distribution Width 14.8 % (11.5-14.5)
[2018-03-14 11:54] LABS: Potassium 4.3 mEq/L (3.5-5.1)
[2018-03-14] MEDS: Sucralfate 1 GM TABLET PO SCH ×3 (13:50→20:48)
[2018-03-14 18:16] LABS: Hematocrit 25.4 % (37.5-50.1); Hemoglobin 8.4 g/dL (12.9-16.9); Mean Corpuscular HGB Conc 33.1 g/dL (31.6-35.5); Mean Corpuscular Hemoglobin 31.6 pg (28.0-33.3); Mean Corpuscular Volume 95.5 fL (83.0-100.0); Mean Platelet Volume 11.6 fL (9.4-12.4); Platelet Count 109 K/mcL (140-400); Red Blood Count 2.66 M/mcL (4.19-5.50); Red Cell Distribution Width 15.3 % (11.5-14.5)
[2018-03-14] MEDS: Gabapentin 300 MG CAPSULE PO SCH (20:48)
[2018-03-14] MEDS: traMADol 50 MG TABLET PO PRN (21:33)
[2018-03-15] MEDS: Insulin LISPRO 300 UNITS/3 ML VIAL SQ SCH ×4 (00:47→17:42)
[2018-03-15 01:01] LABS: Red Cell Distribution Width 15.3 % (11.5-14.5)
[2018-03-15 01:02] LABS: Hematocrit 24.3 % (37.5-50.1); Hemoglobin 8.1 g/dL (12.9-16.9); Immature Platelets 2.3 % (1.1-6.1); Mean Corpuscular HGB Conc 33.3 g/dL (31.6-35.5); Mean Corpuscular Hemoglobin 32.1 pg (28.0-33.3); Mean Corpuscular Volume 96.4 fL (83.0-100.0); Red Blood Count 2.52 M/mcL (4.19-5.50)
[2018-03-15 06:12] LABS: Hematocrit 24.1 % (37.5-50.1); Red Blood Count 2.46 M/mcL (4.19-5.50); Red Cell Distribution Width 15.3 % (11.5-14.5)
[2018-03-15 06:14] LABS: Hemoglobin 7.8 g/dL (12.9-16.9); Immature Platelets 2.6 % (1.1-6.1); Mean Corpuscular HGB Conc 32.4 g/dL (31.6-35.5); Mean Corpuscular Hemoglobin 31.7 pg (28.0-33.3); Mean Platelet Volume 11.3 fL (9.4-12.4)
[2018-03-15 06:35] LABS: Calcium 8.5 mg/dL (8.6-10.3); Potassium 3.9 mEq/L (3.5-5.1)
[2018-03-15] MEDS: Pantoprazole 40 MG VIAL IVP SCH (09:15)
[2018-03-15] MEDS: Sucralfate 1 GM TABLET PO SCH ×4 (09:15→21:31)
[2018-03-15] MEDS: Gabapentin 300 MG CAPSULE PO SCH ×2 (09:15→21:31)
[2018-03-15] MEDS: 0.9 % Sodium Chloride 1,000 ML IVC SCH ×2 (11:09→19:29)
[2018-03-15] MEDS: traMADol 50 MG TABLET PO PRN (11:55)
--- NOTE | 2018-03-15 11:58 | Internal Med Progress Note ---
<Mazin Baker - Last Filed: 03/15/18 11:54> Date of Encounter: 03/15/18 Time of Encounter: 09:00 - Assessment and plan (1) GI bleed Current Visit: Yes Status: Acute Assessment and plan: Patient has multiple day hx of blood from rectum and blood in stools. 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 Patient received 2 units yesterday AM which stopped running around 7:45 AM, symptomatically has mild improvement. hgb remained relatively stable at 7.8. - per surgery, bowel prep today, and planned scope Friday; expect hgb to have mild drop from bowel prep. - clear liquids, per surgery - hold plavix; no NSAIDS or ASA - Protonix IVP - continue tele, closely follow vitals - continue serial CBC q6hr; BMP in the AM - continue gentle hydration; balance between CKD, and CHF - give RBC if hgb is <7.0 Qualifiers: GI bleed type/associated pathology: unspecified gastrointestinal hemorrhage type Qualified Code(s): K92.2 - Gastrointestinal hemorrhage, unspecified (2) Acute blood loss anemia Current Visit: Yes Status: Acute Assessment and plan: See plan above under GI bleed. (3) CAD (coronary artery disease) Current Visit: Yes Status: Chronic Assessment and plan: Hold home medications for now. Qualifiers: Coronary Disease-Associated Artery/Lesion type: unspecified vessel or lesion type [place] vs. transplanted heart: [place] heart Associated angina: without angina Qualified Code(s): I25.10 - Atherosclerotic heart disease of [place] coronary artery without angina pectoris (4) HTN (hypertension) Current Visit: Yes Status: Chronic Assessment and plan: Hold all medications for now. Qualifiers: Hypertension type: essential hypertension Qualified Code(s): I10 - Essential (primary) hypertension (5) Diabetes Current Visit: Yes Status: Chronic Assessment and plan: We will start patient on medium dose sliding scale insulin coverage and ACHS Accu-Cheks. 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 (7) H/O elbow surgery Current Visit: Yes Status: Acute Assessment and plan: Elbow excision/surgery in January 2018. -Patient still in sling. -supportive nursing care. (8) Acute kidney injury superimposed on chronic kidney disease Current Visit: Yes Status: Acute Assessment and plan: Cr on admission was 1.79 and BUN of 99. Cr continues to improve today. Azotemia is most likely in the setting of current GI bleed. If does not resolve with GI bleed, will further workup. U/A was unremarkable. Baseline GFR is ~40 and has most likely decreased recently. - monitor renal function - strict I/O - avoid nephrotoxins - gentle hydration (do not want to exacerbate CHF) (9) CHF (congestive heart failure) Current Visit: Yes Status: Acute Assessment and plan: Patient has known history of CHF. All medications are held for now. - Continue tele monitoring - serial volume status evaluations - gentle hydrations (balance between CHF and [place]) Qualifiers: Qualified Code(s): I50.9 - Heart failure, unspecified (10) DVT prophylaxis Current Visit: Yes Status: Acute Assessment and plan: Mechanical 2/2 setting of GI bleed (11) Neuropathy Current Visit: Yes Status: Acute Assessment and plan: nurse notified that patient has burning in legs. Will restart home gabapentin. 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 Patient is seen and examined. He continues to feel tired, but less so then yesterday. Patient denies chest pain, sob, abdominal pain, nausea, vomiting, coughing up blood, or blood in his urine. All other ROS are negative - Constitutional Vitals: Temp Pulse Resp BP Pulse Ox 97.9 F 68 16 121/65 94 03/15/18 07:37 03/15/18 07:37 03/15/18 07:37 03/15/18 07:37 03/15/18 07:37 General appearance: Present: cooperative, mild distress, A&O X 3, pleasant, obese, answers questions appropriately Exam: grossly pale appearing - Head Head exam: Present: atraumatic - ENT ENT exam: Present: mucous membranes dry - Neck Neck exam general surgery: Present: supple - Respiratory Respiratory exam: Present: CTAB - Cardiovascular Cardiovascular exam: Present: RRR - GI/Abdominal GI/Abdominal exam: Present: hypoactive bowel sounds - Extremities Exam Extremities exam: Absent: pedal edema Internal Medicine: Result - Labs CBC & Chem 7: 03/15/18 05:55 03/15/18 05:55 Labs: Short CBC 03/14/18 03/15/18 03/15/18 Range/Units 18:03 00:35 05:55 WBC 7.9 7.4 6.3 (4.3-11.1) K/mcL Hgb 8.4 L 8.1 L 7.8 L (12.9-16.9) g/dL Hct 25.4 L 24.3 L 24.1 L (37.5-50.1) % Plt Count 109 L 96 L 94 L (140-400) K/mcL BMP 03/14/18 03/15/18 11:21 05:55 Sodium 143 146 H Potassium 4.3 3.9 Chloride 114 H 114 H Carbon Dioxide 26 25 BUN 89 H 58 H Creatinine 1.87 H 1.52 H Glucose 134 H 137 H Calcium 9.0 8.5 L - ABG Interpretation ABG results: PT/INR, D-dimer PT 12.8 Seconds (9.4-12.1) H 03/13/18 21:26 Consult Discharge Plan - Plan Referrals: Arias Ch Jr, MD [Primary Care Provider] - <Kulwinder Quigley - Last Filed: 03/15/18 14:12> Date of Encounter: 03/15/18 - Assessment and plan (1) GI bleed Current Visit: Yes Status: Acute Qualifiers: GI bleed type/associated pathology: melena Qualified Code(s): K92.1 - Melena (2) Acute blood loss anemia Current Visit: Yes Status: Acute (3) CAD (coronary artery disease) Current Visit: Yes Status: Chronic Qualifiers: Coronary Disease-Associated Artery/Lesion type: [place] artery [place] vs. transplanted heart: [place] heart Associated angina: without angina Qualified Code(s): I25.10 - Atherosclerotic heart disease of [place] coronary artery without angina pectoris (4) HTN (hypertension) Current Visit: Yes Status: Chronic Qualifiers: Hypertension type: essential hypertension Qualified Code(s): I10 - Essential (primary) hypertension (5) Diabetes Current Visit: Yes Status: Chronic Qualifiers: Diabetes mellitus type: type 2 Diabetes mellitus snf insulin use: with equipment operator intermodal yard use Diabetes mellitus complication status: with kidney complications Diabetes mellitus complication detail: with chronic kidney disease Chronic kidney disease stage: stage 3 (moderate) Qualified Code(s): E11.22 - Type 2 diabetes mellitus with diabetic chronic kidney disease; N18.3 - Chronic kidney disease, stage 3 (moderate); N18.3 - Chronic kidney disease, stage 3 (moderate); Z79.4 - shelter (current) use of insulin; 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; 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; Z79.4 - shelter (current) use of insulin (6) History of CVA (cerebrovascular accident) Current Visit: Yes Status: Chronic (7) H/O elbow surgery Current Visit: Yes Status: Chronic (8) Acute kidney injury superimposed on chronic kidney disease Current Visit: Yes Status: Acute (9) CHF (congestive heart failure) Current Visit: Yes Status: Chronic Qualifiers: Heart failure type: unspecified Qualified Code(s): I50.9 - Heart failure, unspecified (10) DVT prophylaxis Current Visit: Yes Status: Acute (11) Neuropathy Current Visit: Yes Status: Acute - Time Spent With Patient Total time spent is greater than 50% in coordination of care (as documented) at patient's floor/unit and/or counseling patient: - Constitutional Vitals: Temp Pulse Resp BP Pulse Ox 98.1 F 68 16 151/59 97 03/15/18 12:06 03/15/18 07:37 03/15/18 12:06 03/15/18 12:06 03/15/18 12:06 Internal Medicine: Result - Labs CBC & Chem 7: 03/15/18 11:57 03/15/18 05:55 Labs: Short CBC 03/14/18 03/15/18 03/15/18 Range/Units 18:03 00:35 05:55 WBC 7.9 7.4 6.3 (4.3-11.1) K/mcL Hgb 8.4 L 8.1 L 7.8 L (12.9-16.9) g/dL Hct 25.4 L 24.3 L 24.1 L (37.5-50.1) % Plt Count 109 L 96 L 94 L (140-400) K/mcL 03/15/18 Range/Units 11:57 WBC 9.4 (4.3-11.1) K/mcL Hgb 9.1 L (12.9-16.9) g/dL Hct 27.8 L (37.5-50.1) % Plt Count 121 L (140-400) K/mcL BMP 03/15/18 05:55 Sodium 146 H Potassium 3.9 Chloride 114 H Carbon Dioxide 25 BUN 58 H Creatinine 1.52 H Glucose 137 H Calcium 8.5 L - ABG Interpretation ABG results: PT/INR, D-dimer PT 12.8 Seconds (9.4-12.1) H 03/13/18 21:26 - Attending Attestation I examined this patient and my medical decision-making was reviewed with the Resident Physician on 03/15/18. I agree with the documented findings, disposition and treatment plan as described except to the extent set forth below. Mr Manley is currently admitted for acute GI bleed. He remains moderate to high risk due to potential for worsening clinical status. Mr Manley is very tired. He was awakened earlier to have blood drawn. No fever. Tolerating prep at this point. Has received 2 units PRBCs and H/H is improving. Exam Alert comfortable at this time Mucus membranes dry Heart not tachy now Lungs diminished Abd soft I/P 1. GI Bleed - plan for endoscopy tomorrow 2. anemia Further diagnoses and plan as above.
[2018-03-15 12:14] LABS: Hematocrit 27.8 % (37.5-50.1); Hemoglobin 9.1 g/dL (12.9-16.9); Mean Corpuscular HGB Conc 32.7 g/dL (31.6-35.5); Mean Corpuscular Hemoglobin 32.3 pg (28.0-33.3); Mean Corpuscular Volume 98.6 fL (83.0-100.0); Mean Platelet Volume 11.5 fL (9.4-12.4); Platelet Count 121 K/mcL (140-400); Red Blood Count 2.82 M/mcL (4.19-5.50); Red Cell Distribution Width 15.3 % (11.5-14.5)
--- NOTE | 2018-03-15 12:40 | General Surgery Progress Note ---
<Stoney Johnson - Last Filed: 03/15/18 13:50> Date of Encounter: 03/15/18 Time of Encounter: 12:40 - Assessment and Plan (1) Acute blood loss anemia Current Visit: Yes Status: Acute Admitted early 03/14 new onset blood in stool Hgb 9.1 (03/14 7.8, 8.1, 8.4, 8.7, 8.5, 7.5, 6.7, 03/13 7.9) s/p 2U transfusion early am 03/14 Not on anticoagulation No hx colonoscopy VSS Hgb 03/15 am 9.1 (8.4) Plan: EGD/Colonoscopy with Dr. Momin Friday 03/16 after completion of two day bowel prep Continue clear liquid diet, will be NPO at midnight. Subjective Narrative: Mr. Manley was seen and evaluted at bedside. He is tolerating his bowel prep, no nausea/vomiting, good urine output, last recorded stool was loose and black. He denies fevers, shortness of breath, chest discomfort. Objective Vital Signs - Last 8 Hours Temp Pulse Resp BP Pulse Ox 03/15/18 12:06 98.1 F 16 151/59 97 03/15/18 07:37 97.9 F 68 16 121/65 94 Intake and Output 03/14/18 03/15/18 03/15/18 23:59 07:59 15:59 Intake Total 1220 / 1220 1120 / 1120 Output Total 650 / 650 Balance 1220 / 1220 -650 / -650 1120 / 1120 Intake: IV Fluids 1000 / 1000 1000 / 1000 0.9 % Sodium Chloride 1,000 ML 1000 / 1000 1000 / 1000 @ 75 mls/hr IVC .[id number] [facility] Rx #:[id number] Oral 220 / 220 120 / 120 Output: Urine 650 / 650 Other: Stool Size Large Stool Consistency loose Stool Color Black # Voids 1 # Bowel Movements 1 Weight 97.8 kg Blood Glucose* 188 135 204 Patient Weight 03/15/18 23:59 Weight 97.8 kg - General physical appearance well developed, well nourished, no distress - Eyes normal ocular movement - ENT normal mucosa - Neck Neck exam: no lymphadectomy - Respiratory normal expansion, normal respiratory effort, clear to auscultation - Cardiovascular Cardiovascular exam: Present: RRR - Abdomen Abdomen: Present: bowel sounds present, soft, non tender - Neurologic normal sensation - Psychiatric oriented to person, oriented to place, memory intact, other (speech impacted by stutter) - Labs 03/15/18 11:57 03/15/18 05:55 Diabetes panel 03/15/18 Range/Units 05:55 Sodium 146 H (136-145) mEq/L Potassium 3.9 (3.5-5.1) mEq/L Chloride 114 H (98-107) mEq/L Carbon Dioxide 25 (23-29) mEq/L BUN 58 H (8-23) mg/dL Creatinine 1.52 H (0.70-1.30) mg/dL Glucose 137 H (70-105) mg/dL Calcium 8.5 L (8.6-10.3) mg/dL Calcium panel 03/15/18 Range/Units 05:55 Calcium 8.5 L (8.6-10.3) mg/dL Pituitary panel 03/15/18 Range/Units 05:55 Sodium 146 H (136-145) mEq/L Potassium 3.9 (3.5-5.1) mEq/L Chloride 114 H (98-107) mEq/L Carbon Dioxide 25 (23-29) mEq/L BUN 58 H (8-23) mg/dL Creatinine 1.52 H (0.70-1.30) mg/dL Glucose 137 H (70-105) mg/dL Calcium 8.5 L (8.6-10.3) mg/dL Adrenal panel 03/15/18 Range/Units 05:55 Sodium 146 H (136-145) mEq/L Potassium 3.9 (3.5-5.1) mEq/L Chloride 114 H (98-107) mEq/L Carbon Dioxide 25 (23-29) mEq/L BUN 58 H (8-23) mg/dL Creatinine 1.52 H (0.70-1.30) mg/dL Glucose 137 H (70-105) mg/dL Calcium 8.5 L (8.6-10.3) mg/dL Consult Discharge Plan - Plan Referrals: Arias Ch Jr, MD [Primary Care Provider] - <Joslyn Momin - Last Filed: 03/15/18 17:19> Date of Encounter: 03/15/18 - Assessment and Plan (1) Anemia Current Visit: Yes Status: Acute plan EGD/colonoscopy tomorrow npo midnight clears till midnight patient has been transfused 2 units yesterday, Hb stable, monitor Qualifiers: Anemia type: unspecified type Qualified Code(s): D64.9 - Anemia, unspecified Subjective Patient reports: no new complaints, tolerating liquids well, bowel movement Objective Vital Signs - Last 8 Hours Temp Pulse Resp BP Pulse Ox 03/15/18 16:16 98.0 F 66 16 161/67 98 03/15/18 12:06 98.1 F 16 151/59 97 Intake and Output 03/15/18 03/15/18 03/15/18 07:59 15:59 23:59 Intake Total 1120 / 1120 Output Total 650 / 650 Balance -650 / -650 1120 / 1120 Intake: IV Fluids 1000 / 1000 0.9 % Sodium Chloride 1,000 ML 1000 / 1000 @ 75 mls/hr IVC .[id number] [facility] Rx #:[id number] Oral 120 / 120 Output: Urine 650 / 650 Other: Stool Size Moderate Stool Consistency liquid Stool Color Black # Bowel Movements 1 Weight 97.8 kg Blood Glucose* 135 204 Patient Weight 03/15/18 23:59 Weight 97.8 kg - General physical appearance well developed, well nourished, no distress - Eyes normal ocular movement - ENT normal mucosa, normocephalic - Neck Neck exam: trachea midline - Respiratory normal expansion, normal respiratory effort - Cardiovascular Cardiovascular exam: Present: RRR - Abdomen Abdomen: Present: bowel sounds present, soft, non tender - Integumentary no growths - Neurologic CN 2-12 grossly intact - Musculoskeletal normal posture - Psychiatric oriented to time, oriented to person, oriented to place, memory intact - Labs 03/15/18 11:57 03/15/18 05:55 Diabetes panel 03/15/18 Range/Units 05:55 Sodium 146 H (136-145) mEq/L Potassium 3.9 (3.5-5.1) mEq/L Chloride 114 H (98-107) mEq/L Carbon Dioxide 25 (23-29) mEq/L BUN 58 H (8-23) mg/dL Creatinine 1.52 H (0.70-1.30) mg/dL Glucose 137 H (70-105) mg/dL Calcium 8.5 L (8.6-10.3) mg/dL Calcium panel 03/15/18 Range/Units 05:55 Calcium 8.5 L (8.6-10.3) mg/dL Pituitary panel 03/15/18 Range/Units 05:55 Sodium 146 H (136-145) mEq/L Potassium 3.9 (3.5-5.1) mEq/L Chloride 114 H (98-107) mEq/L Carbon Dioxide 25 (23-29) mEq/L BUN 58 H (8-23) mg/dL Creatinine 1.52 H (0.70-1.30) mg/dL Glucose 137 H (70-105) mg/dL Calcium 8.5 L (8.6-10.3) mg/dL Adrenal panel 03/15/18 Range/Units 05:55 Sodium 146 H (136-145) mEq/L Potassium 3.9 (3.5-5.1) mEq/L Chloride 114 H (98-107) mEq/L Carbon Dioxide 25 (23-29) mEq/L BUN 58 H (8-23) mg/dL Creatinine 1.52 H (0.70-1.30) mg/dL Glucose 137 H (70-105) mg/dL Calcium 8.5 L (8.6-10.3) mg/dL - Attending Attestation I examined this patient and my medical decision-making was reviewed with the Resident Physician. I agree with the documented findings, disposition and treatment plan as described except to the extent set forth below.
[2018-03-15] MEDS ORDERED: Artificial Tears SOLN 15 ML BOTTLE BOTH EYES PRN (12:54)
[2018-03-15] MEDS: MORPHINE SUL Oral CONC 10 MG/0.5 ML ORAL.SYG SL PRN (16:04)
[2018-03-15 18:37] LABS: Hematocrit 24.4 % (37.5-50.1); Hemoglobin 7.9 g/dL (12.9-16.9); Immature Platelets 2.6 % (1.1-6.1); Mean Corpuscular HGB Conc 32.4 g/dL (31.6-35.5); Mean Corpuscular Hemoglobin 32.2 pg (28.0-33.3); Mean Corpuscular Volume 99.6 fL (83.0-100.0); Mean Platelet Volume 11.8 fL (9.4-12.4); Red Blood Count 2.45 M/mcL (4.19-5.50); Red Cell Distribution Width 15.2 % (11.5-14.5)
[2018-03-15] MEDS: Pantoprazole 40 MG in 0.9 % Sodium Chloride Mini Bag 100 ML IVC SCH (19:29)
[2018-03-16] MEDS: Insulin LISPRO 300 UNITS/3 ML VIAL SQ SCH ×4 (00:13→17:10)
[2018-03-16 00:24] LABS: Hematocrit 23.1 % (37.5-50.1); Hemoglobin 7.6 g/dL (12.9-16.9); Immature Platelets 2.9 % (1.1-6.1); Mean Corpuscular HGB Conc 32.9 g/dL (31.6-35.5); Mean Corpuscular Hemoglobin 32.2 pg (28.0-33.3); Mean Corpuscular Volume 97.9 fL (83.0-100.0); Mean Platelet Volume 11.4 fL (9.4-12.4); Red Blood Count 2.36 M/mcL (4.19-5.50); Red Cell Distribution Width 15.2 % (11.5-14.5)
[2018-03-16 00:43] LABS: BUN/Creatinine Ratio 27 (6-26); Blood Urea Nitrogen 36 mg/dL (8-23); Carbon Dioxide 26 mEq/L (23-29); Chloride 115 mEq/L (98-107); Glucose 143 mg/dL (70-105); Osmolality,Calculated 311 (280-300); Potassium 3.7 mEq/L (3.5-5.1); Sodium 145 mEq/L (136-145); eGFR For African Americans > 60 (> 60); eGFR For Non-African Americans 52 (> 60)
[2018-03-16] MEDS: 0.9 % Sodium Chloride 1,000 ML IVC SCH ×2 (05:51→21:05)
[2018-03-16 06:52] LABS: Hemoglobin 7.8 g/dL (12.9-16.9)
[2018-03-16 06:54] LABS: Hematocrit 24.1 % (37.5-50.1); Immature Platelets 3.7 % (1.1-6.1); Mean Corpuscular HGB Conc 32.4 g/dL (31.6-35.5); Mean Corpuscular Hemoglobin 32.2 pg (28.0-33.3); Mean Corpuscular Volume 99.6 fL (83.0-100.0); Mean Platelet Volume 11.6 fL (9.4-12.4); Red Blood Count 2.42 M/mcL (4.19-5.50)
[2018-03-16] MEDS: MORPHINE SUL Oral CONC 10 MG/0.5 ML ORAL.SYG SL PRN ×2 (08:34→17:18)
[2018-03-16] MEDS: Sucralfate 1 GM TABLET PO SCH ×4 (08:34→21:05)
[2018-03-16] MEDS: Gabapentin 300 MG CAPSULE PO SCH ×2 (08:34→21:05)
[2018-03-16] MEDS: Pantoprazole 40 MG VIAL IVP SCH (08:38)
--- NOTE | 2018-03-16 11:16 | Internal Med Progress Note ---
<Mazin Baker - Last Filed: 03/16/18 15:37> Date of Encounter: 03/16/18 Time of Encounter: 11:13 - Assessment and plan (1) GI bleed Current Visit: Yes Status: Acute Assessment and plan: Patient has multiple day hx of blood from rectum and blood in stools. 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 after receiving 2 units of blood earlier during hospitalization, hgb has remained stable. - will follow surgery recommondations on EGD/colonoscopy (most likely tomorrow) - clear liquids, per surgery - hold plavix; no NSAIDS or ASA - Protonix IVP - continue tele, closely follow vitals - continue serial CBC q6hr; BMP in the AM - continue gentle hydration; balance between CKD, and CHF - give RBC if hgb is <7.0 Qualifiers: GI bleed type/associated pathology: melena Qualified Code(s): K92.1 - Melena (2) Acute blood loss anemia Current Visit: Yes Status: Acute Assessment and plan: See plan above under GI bleed. (3) CAD (coronary artery disease) Current Visit: Yes Status: Chronic Assessment and plan: Hold home medications for now. Qualifiers: Coronary Disease-Associated Artery/Lesion type: [place] artery [place] vs. transplanted heart: [place] heart Associated angina: without angina Qualified Code(s): I25.10 - Atherosclerotic heart disease of [place] coronary artery without angina pectoris (4) HTN (hypertension) Current Visit: Yes Status: Chronic Assessment and plan: Hold all medications for now. Qualifiers: Hypertension type: essential hypertension Qualified Code(s): I10 - Essential (primary) hypertension (5) Diabetes Current Visit: Yes Status: Chronic Assessment and plan: We will start patient on medium dose sliding scale insulin coverage and ACHS Accu-Cheks. Qualifiers: Diabetes mellitus type: type 2 Diabetes mellitus senior living insulin use: with senior living use Diabetes mellitus complication status: with kidney complications Diabetes mellitus complication detail: with chronic kidney disease Chronic kidney disease stage: stage 3 (moderate) Qualified Code(s): E11.22 - Type 2 diabetes mellitus with diabetic chronic kidney disease; N18.3 - Chronic kidney disease, stage 3 (moderate); N18.3 - Chronic kidney disease, stage 3 (moderate); Z79.4 - terminal superintendent (current) use of insulin; Z79.4 - terminal superintendent (current) use of insulin; Z79.4 - USP (current) use of insulin; Z79.4 - terminal superintendent (current) use of insulin (6) History of CVA (cerebrovascular accident) Current Visit: Yes Status: Chronic Assessment and plan: Hold plavix. (7) H/O elbow surgery Current Visit: Yes Status: Chronic Assessment and plan: Elbow excision/surgery in January 2018. -Patient still in sling. -supportive nursing care. (8) Acute kidney injury superimposed on chronic kidney disease Current Visit: Yes Status: Acute Assessment and plan: Cr on admission was 1.79 and BUN of 99. Cr continues to improve today. Azotemia is most likely in the setting of current GI bleed. If does not resolve with GI bleed, will further workup. U/A was unremarkable. Baseline GFR is ~40 and has most likely decreased recently. - monitor renal function - strict I/O - avoid nephrotoxins - gentle hydration (do not want to exacerbate CHF) (9) CHF (congestive heart failure) Current Visit: Yes Status: Chronic Assessment and plan: Patient has known history of CHF. All medications are held for now. - Continue tele monitoring - serial volume status evaluations - gentle hydrations (balance between CHF and [place]) Qualifiers: Heart failure type: unspecified Qualified Code(s): I50.9 - Heart failure, unspecified (10) DVT prophylaxis Current Visit: Yes Status: Acute Assessment and plan: Mechanical 2/2 setting of GI bleed (11) Neuropathy Current Visit: Yes Status: Acute Assessment and plan: nurse notified that patient has burning in legs. Will restart home gabapentin. added on morphine SL yesterday. currently controlled. 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 Patient is seen and examined. Patient had some increased generalized pain and peripheral neuropathy yesterday, and was started on morphine sl. Pain has been controlled since. Patient denies chest pain, sob, abdominal pain, nausea, vomiting, coughing up blood, or blood in his urine. All other ROS are negative - Constitutional Vitals: Temp Pulse Resp BP Pulse Ox 98.0 F 65 16 145/65 97 03/16/18 07:32 03/16/18 07:32 03/16/18 07:32 03/16/18 07:32 03/16/18 07:32 General appearance: Present: cooperative, mild distress, A&O X 3, pleasant, obese, answers questions appropriately - Head Head exam: Present: atraumatic, normocephalic - ENT ENT exam: Present: mucous membranes dry - Respiratory Respiratory exam: Present: CTAB - Cardiovascular Cardiovascular exam: Present: RRR - GI/Abdominal GI/Abdominal exam: Present: hypoactive bowel sounds. Absent: distended, firm, guarding - Extremities Exam Extremities exam: Absent: pedal edema Internal Medicine: Result - Labs CBC & Chem 7: 03/16/18 11:49 03/16/18 00:10 Labs: Short CBC 03/15/18 03/15/18 03/16/18 Range/Units 11:57 18:18 00:10 WBC 9.4 5.5 5.6 (4.3-11.1) K/mcL Hgb 9.1 L 7.9 L 7.6 L (12.9-16.9) g/dL Hct 27.8 L 24.4 L 23.1 L (37.5-50.1) % Plt Count 121 L 95 L 97 L (140-400) K/mcL 03/16/18 Range/Units 06:17 WBC 5.2 (4.3-11.1) K/mcL Hgb 7.8 L (12.9-16.9) g/dL Hct 24.1 L (37.5-50.1) % Plt Count 91 L (140-400) K/mcL BMP 03/16/18 00:10 Sodium 145 Potassium 3.7 Chloride 115 H Carbon Dioxide 26 BUN 36 H Creatinine 1.32 H Glucose 143 H Calcium 8.0 L - ABG Interpretation ABG results: PT/INR, D-dimer PT 12.8 Seconds (9.4-12.1) H 03/13/18 21:26 Consult Discharge Plan - Plan Referrals: Arias Ch Jr, MD [Primary Care Provider] - <Kulwinder Quigley - Last Filed: 03/16/18 19:23> Date of Encounter: 03/16/18 - Assessment and plan (1) GI bleed Current Visit: Yes Status: Acute Qualifiers: GI bleed type/associated pathology: melena Qualified Code(s): K92.1 - Melena (2) Acute blood loss anemia Current Visit: Yes Status: Acute (3) CAD (coronary artery disease) Current Visit: Yes Status: Chronic Qualifiers: Coronary Disease-Associated Artery/Lesion type: [place] artery [place] vs. 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 use Diabetes mellitus complication status: with kidney complications Diabetes mellitus complication detail: with chronic kidney disease Chronic kidney disease stage: stage 3 (moderate) Qualified Code(s): E11.22 - Type 2 diabetes mellitus with diabetic chronic kidney disease; N18.3 - Chronic kidney disease, stage 3 (moderate); N18.3 - Chronic kidney disease, stage 3 (moderate); Z79.4 - terminal superintendent (current) use of insulin; Z79.4 - USP (current) use of insulin; Z79.4 - terminal superintendent (current) use of insulin; Z79.4 - terminal superintendent (current) use of insulin (6) History of CVA (cerebrovascular accident) Current Visit: Yes Status: Chronic (7) H/O elbow surgery Current Visit: Yes Status: Chronic (8) Acute kidney injury superimposed on chronic kidney disease Current Visit: Yes Status: Acute (9) CHF (congestive heart failure) Current Visit: Yes Status: Chronic Qualifiers: Heart failure type: unspecified Qualified Code(s): I50.9 - Heart failure, unspecified (10) DVT prophylaxis Current Visit: Yes Status: Acute (11) Neuropathy Current Visit: Yes Status: Acute - Time Spent With Patient Total time spent is greater than 50% in coordination of care (as documented) at patient's floor/unit and/or counseling patient: - Constitutional Vitals: Temp Pulse Resp BP Pulse Ox 98.9 F 64 16 148/66 98 03/16/18 19:07 03/16/18 19:07 03/16/18 19:07 03/16/18 19:07 03/16/18 19:07 Internal Medicine: Result - Labs CBC & Chem 7: 03/16/18 11:49 03/16/18 00:10 Labs: Short CBC 03/16/18 03/16/18 03/16/18 Range/Units 00:10 06:17 11:49 WBC 5.6 5.2 5.5 (4.3-11.1) K/mcL Hgb 7.6 L 7.8 L 8.1 L (12.9-16.9) g/dL Hct 23.1 L 24.1 L 25.6 L (37.5-50.1) % Plt Count 97 L 91 L 100 L (140-400) K/mcL BMP 03/16/18 00:10 Sodium 145 Potassium 3.7 Chloride 115 H Carbon Dioxide 26 BUN 36 H Creatinine 1.32 H Glucose 143 H Calcium 8.0 L - ABG Interpretation ABG results: PT/INR, D-dimer PT 12.8 Seconds (9.4-12.1) H 03/13/18 21:26 - Attending Attestation I examined this patient and my medical decision-making was reviewed with the Resident Physician on 03/16/18. I agree with the documented findings, disposition and treatment plan as described except to the extent set forth below. Mr Manley is currently admitted for acute GI bleed and anemia. He remains moderate to high risk due to potential for worsening clinical status. Mr Manley was not clear for endoscopy today so rescheduled for tomorrow. No fever. Feels weak. Exam alert Comfortable Mucus membranes dry Heart distant Lungs diminished I/P 1. GI bleed 2. Anemia Further diagnoses and plan as above.
[2018-03-16 12:00] LABS: Hematocrit 25.6 % (37.5-50.1); Hemoglobin 8.1 g/dL (12.9-16.9); Mean Corpuscular HGB Conc 31.6 g/dL (31.6-35.5); Mean Corpuscular Hemoglobin 31.4 pg (28.0-33.3); Mean Corpuscular Volume 99.2 fL (83.0-100.0); Mean Platelet Volume 10.9 fL (9.4-12.4); Platelet Count 100 K/mcL (140-400); Red Blood Count 2.58 M/mcL (4.19-5.50)
--- NOTE | 2018-03-16 12:15 | General Surgery Progress Note ---
Date of Encounter: 03/16/18 Time of Encounter: 12:15 - Assessment and Plan (1) Acute blood loss anemia Current Visit: Yes Status: Acute Admitted early 03/14 new onset blood in stool Hgb 9.1 (03/14 7.8, 8.1, 8.4, 8.7, 8.5, 7.5, 6.7, 03/13 7.9) s/p 2U transfusion early am 03/14; transfusions per primary team. Not on anticoagulation No hx colonoscopy VSS Hgb 03/16 am 8.1. He was scheduled for EGD and colonoscopy today, but bedside RN notes incokplete prep. He was given an enema which has not resolved the issue. Plan: Cancel EGD/colonoscopy for today. Reschedule for 03/17/2018. Leydi citrate 296 ML's times 1. May have clear liquid diet today. No red dye. NPO after midnight. Subjective Patient reports: no new complaints (States he is "just worn out."), voiding w/o difficulty, flatus, bowel movement, afebrile Objective Vital Signs - Last 8 Hours Temp Pulse Resp BP Pulse Ox 03/16/18 11:16 98.6 F 67 16 167/61 98 03/16/18 07:32 98.0 F 65 16 145/65 97 Intake and Output 03/15/18 03/16/18 03/16/18 23:59 07:59 15:59 Intake Total 240 / 240 1000 / 1000 Output Total 400 / 400 Balance 240 / 240 600 / 600 Intake: IV Fluids 1000 / 1000 0.9 % Sodium Chloride 1,000 ML 1000 / 1000 @ 75 mls/hr IVC .[id number] JESSICA Rx #:[id number] Oral 240 / 240 Output: Urine 400 / 400 Other: Meal clear liquids Stool Size Moderate Small Stool Consistency loose liquid Stool Color Black # Voids 1 # Bowel Movements 1 # Bowel Movement Diapers 1 Weight 98.8 kg Blood Glucose* 149 159 168 Patient Weight 03/16/18 23:59 Weight 98.8 kg - General physical appearance no distress - ENT atraumatic, normocephalic - Neck Neck exam: trachea midline, no venous distension - Respiratory normal expansion, normal respiratory effort, clear to auscultation - Cardiovascular Cardiovascular exam: Present: RRR - Abdomen Abdomen: Present: bowel sounds present, soft, non tender - Integumentary no abnormal pigmentation - Neurologic normal sensation - Musculoskeletal normal posture - Psychiatric oriented to time, oriented to person, oriented to place, speech is normal, memory intact - Labs 03/16/18 11:49 03/16/18 00:10 Diabetes panel 03/16/18 Range/Units 00:10 Sodium 145 (136-145) mEq/L Potassium 3.7 (3.5-5.1) mEq/L Chloride 115 H (98-107) mEq/L Carbon Dioxide 26 (23-29) mEq/L BUN 36 H (8-23) mg/dL Creatinine 1.32 H (0.70-1.30) mg/dL Glucose 143 H (70-105) mg/dL Calcium 8.0 L (8.6-10.3) mg/dL Calcium panel 03/16/18 Range/Units 00:10 Calcium 8.0 L (8.6-10.3) mg/dL Pituitary panel 03/16/18 Range/Units 00:10 Sodium 145 (136-145) mEq/L Potassium 3.7 (3.5-5.1) mEq/L Chloride 115 H (98-107) mEq/L Carbon Dioxide 26 (23-29) mEq/L BUN 36 H (8-23) mg/dL Creatinine 1.32 H (0.70-1.30) mg/dL Glucose 143 H (70-105) mg/dL Calcium 8.0 L (8.6-10.3) mg/dL Adrenal panel 03/16/18 Range/Units 00:10 Sodium 145 (136-145) mEq/L Potassium 3.7 (3.5-5.1) mEq/L Chloride 115 H (98-107) mEq/L Carbon Dioxide 26 (23-29) mEq/L BUN 36 H (8-23) mg/dL Creatinine 1.32 H (0.70-1.30) mg/dL Glucose 143 H (70-105) mg/dL Calcium 8.0 L (8.6-10.3) mg/dL Consult Discharge Plan - Plan Referrals: Arias Ch Jr, MD [Primary Care Provider] -
[2018-03-16] MEDS: traMADol 50 MG TABLET PO PRN (14:51)
--- NOTE | 2018-03-16 22:11 | Anesthesia Evaluation PreOp ---
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: CVA (residual balance problems, pt was on plavix) Other Medical History: Renal (CKD), Diabetes Type II, Other (GI bleed, acute blood loss anemia) Anesthesia History: No Prior Anesthetic Complications, Past Anesthesia (L elbow , CABG) Alcohol Use: none Drug use: none Medications and Allergies Aspirin [Lo-Dose Aspirin EC] 81 mg PO DAILY 02/17/18 [History] Atorvastatin Calcium 80 mg PO DAILY 02/17/18 [History] Clopidogrel [Plavix] 75 mg PO DAILY 02/17/18 [History] Furosemide [Lasix] 40 mg PO DAILY 02/17/18 [History] Gabapentin [Neurontin] 300 mg PO BID 02/17/18 [History] Insulin ASPART [Novolog Flexpen] 0 units SQ TID 02/17/18 [History] Insulin Glargine,Hum.rec.anlog [Lantus Solostar] 32 units SQ DAILY 02/17/18 [ History] Losartan Potassium [Cozaar] 100 mg PO DAILY 02/17/18 [History] Potassium 99 mg PO DAILY 02/17/18 [History] Tramadol HCl [Ultram] 50 mg PO BID PRN 02/17/18 [History] Vit C/E/Zn/Coppr/Lutein/Zeaxan [Preservision Areds 2 Softgel] 1 cap PO DAILY [History] Docusate [Colace] 100 mg PO DAILY 03/14/18 [History] Metoprolol Succinate [Toprol Xl] 50 mg PO BID 03/14/18 [History] 3 Allergy/AdvReac Type Severity Reaction Status Date / Time iodine Allergy See Verified 02/17/18 12:08 Comments - Meds/Allergy Pre-op Review Medications Reviewed: Yes Allergies Reviewed: Yes Beta Blockers on Current Med List: No Anesthesia Results - Labs 03/16/18 11:49 03/16/18 00:10 - Imaging EKG: report reviewed (SR) Anesthesia Exam Vital Signs/O2 Sat, Most Current Temp Pulse Resp BP Pulse Ox 98.9 F 64 16 148/66 98 03/16/18 19:07 03/16/18 19:07 03/16/18 19:07 03/16/18 19:07 03/16/18 19:07 Weight: 98kg - HEENT Pupil (Motor): Pupils equal, EOMI Mallampati: II Teeth: Prosthesis Denture Type: Upper: Partial, Lower: Partial - NATURAL RESOURCES EXTENSION EDUCATOR LOC: Oriented NATURAL RESOURCES EXTENSION EDUCATOR Motor: Normal RUE, Normal LUE, Normal RLE, Normal LLE, Normal Face NATURAL RESOURCES EXTENSION EDUCATOR Sensory: Normal: RUE, LUE, RLE, LLE, Face - Cardiac Rhythm: Regular - Pulmonary Breath Sounds: bilateral Clear Respiratory Effort: Symmetrical Anesthesia Assess/Plan ASA Score: 3 Modified [place] Scale for Level of Consciousness: Cooperative, oriented, and tranquil Anesthetic Plan: MAC Monitoring Plan: Standard Monitors Recovery Plan: PACU
[2018-03-17] MEDS: Insulin LISPRO 300 UNITS/3 ML VIAL SQ SCH ×5 (00:35→23:21)
[2018-03-17] MEDS: 0.9 % Sodium Chloride 1,000 ML IVC SCH ×2 (05:53→21:45)
[2018-03-17 06:22] LABS: BUN/Creatinine Ratio 15 (6-26); Blood Urea Nitrogen 18 mg/dL (8-23); Calcium 8.3 mg/dL (8.6-10.3); Carbon Dioxide 23 mEq/L (23-29); Chloride 116 mEq/L (98-107); Glucose 150 mg/dL (70-105); Osmolality,Calculated 305 (280-300); Potassium 4.4 mEq/L (3.5-5.1); Sodium 145 mEq/L (136-145); eGFR For African Americans > 60 (> 60); eGFR For Non-African Americans 57 (> 60)
[2018-03-17 08:40] LABS: Mean Platelet Volume 11.7 fL (9.4-12.4)
[2018-03-17 08:42] LABS: Hematocrit 23.6 % (37.5-50.1); Hemoglobin 7.6 g/dL (12.9-16.9); Immature Platelets 3.9 % (1.1-6.1); Mean Corpuscular HGB Conc 32.2 g/dL (31.6-35.5); Mean Corpuscular Hemoglobin 32.1 pg (28.0-33.3); Mean Corpuscular Volume 99.6 fL (83.0-100.0); Red Blood Count 2.37 M/mcL (4.19-5.50); Red Cell Distribution Width 15.4 % (11.5-14.5)
[2018-03-17] MEDS: Pantoprazole 40 MG VIAL IVP SCH (10:52)
[2018-03-17] MEDS: Sucralfate 1 GM TABLET PO SCH ×4 (10:52→21:44)
[2018-03-17] MEDS: Gabapentin 300 MG CAPSULE PO SCH ×2 (10:52→21:44)
--- NOTE | 2018-03-17 13:21 | Anesthesia Evaluation PreOp ---
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 History: CVA (residual balance problems, pt was on plavix) Other Medical History: Renal (CKD), Diabetes Type II, Other (GI bleed, acute blood loss anemia) Anesthesia History: No Prior Anesthetic Complications, Past Anesthesia (L elbow, CABG) Alcohol Use: none Drug use: none Medications and Allergies), [place], HTN, Hyperlipidemia, Cardiac Surgery (CABGx2) , Cardiac Stent Pulmonary History: Former smoker, Snore HR ADMINISTRATOR History: CVA (2016 residual balance problems) Other Medical History: Renal (CKD Stage III), Diabetes Type II Alcohol Use: none Drug use: none Medications and Allergies Aspirin [Lo-Dose Aspirin EC] 81 mg PO DAILY 02/17/18 [History] Atorvastatin Calcium 80 mg PO DAILY 02/17/18 [History] Clopidogrel [Plavix] 75 mg PO DAILY 02/17/18 [History] Furosemide [Lasix] 40 mg PO DAILY 02/17/18 [History] Gabapentin [Neurontin] 300 mg PO BID 02/17/18 [History] Insulin ASPART [Novolog Flexpen] 0 units SQ TID 02/17/18 [History] Insulin Glargine,Hum.rec.anlog [Lantus Solostar] 32 units SQ DAILY 02/17/18 [ History] Losartan Potassium [Cozaar] 100 mg PO DAILY 02/17/18 [History] Potassium 99 mg PO DAILY 02/17/18 [History] Tramadol HCl [Ultram] 50 mg PO BID PRN 02/17/18 [History] Vit C/E/Zn/Coppr/Lutein/Zeaxan [Preservision Areds 2 Softgel] 1 cap PO DAILY [History] Docusate [Colace] 100 mg PO DAILY 03/14/18 [History] Metoprolol Succinate [Toprol Xl] 50 mg PO BID 03/14/18 [History] 3 Allergy/AdvReac Type Severity Reaction Status Date / Time iodine Allergy See Verified 02/17/18 12:08 Comments - Meds/Allergy Pre-op Review Medications Reviewed: Yes Allergies Reviewed: Yes Beta Blockers on Current Med List: No Anesthesia Results - Labs 03/17/18 08:06 03/17/18 05:50 - Imaging EKG: report reviewed (SR) Anesthesia Exam Vital Signs/O2 Sat, Most Current Temp Pulse Resp BP Pulse Ox 98.7 F 63 16 136/63 99 03/17/18 10:46 03/17/18 10:46 03/17/18 10:46 03/17/18 10:46 03/17/18 10:46 NPO (# of Hours): > 8 hrs Pain Scale: 0 Pain Scale Used: Numeric (1 - 10) - HEENT Pupil (Motor): Pupils equal, EOMI - HR ADMINISTRATOR LOC: Oriented HR ADMINISTRATOR Motor: Normal RUE, Normal LUE, Normal RLE, Normal LLE, Normal Face HR ADMINISTRATOR Sensory: Normal: RUE, LUE, RLE, LLE, Face - Cardiac Rhythm: Regular Murmur: None JVD: No Carotid Bruit: No - Pulmonary Breath Sounds: bilateral Clear Respiratory Effort: Symmetrical Anesthesia Assess/Plan ASA Score: 3 Modified [place] Scale for Level of Consciousness: Cooperative, oriented, and tranquil Anesthetic Plan: General Autologous Blood: Yes Recovery Plan: PACU
[2018-03-17] MEDS ORDERED: Lidocaine -MPF 2% 2 ML VIAL ONE (14:09)
[2018-03-17] MEDS ORDERED: *HR* Metoprolol 5 MG/5 ML VIAL IVP ONE (14:09)
[2018-03-17] MEDS ORDERED: Propofol 500 MG/50 ML INFUS..BTL ONE (14:09)
--- NOTE | 2018-03-17 14:41 | Internal Med Progress Note ---
Date of Encounter: 03/17/18 Time of Encounter: 14:30 - Assessment and plan (1) GI bleed Current Visit: Yes Status: Acute Assessment and plan: Patient has multiple day hx of blood from rectum and blood in stools. Patient is also on medical terminologist xarelto for previous CVA. after receiving 2 units of blood earlier during hospitalization, hgb has remained stable. - will follow surgery recommendations on EGD/colonoscopy - hold plavix; no NSAIDS or ASA - Protonix IVP - continue tele, closely follow vitals - continue serial CBC q6hr; BMP in the AM - continue gentle hydration; balance between CKD, and CHF - Monitor H&H and transfuse for Hgb less than 8 with history of CAD. Qualifiers: GI bleed type/associated pathology: melena Qualified Code(s): K92.1 - Melena (2) Acute blood loss anemia Current Visit: Yes Status: Acute Assessment and plan: See plan above under GI bleed. (3) CAD (coronary artery disease) Current Visit: Yes Status: Chronic Assessment and plan: Hold home medications for now. Qualifiers: Coronary Disease-Associated Artery/Lesion type: [place] artery [place] vs. transplanted heart: [place] heart Associated angina: without angina Qualified Code(s): I25.10 - Atherosclerotic heart disease of [place] coronary artery without angina pectoris (4) HTN (hypertension) Current Visit: Yes Status: Chronic Assessment and plan: Hold all medications for now. Add PRN hydralazine Qualifiers: Hypertension type: essential hypertension Qualified Code(s): I10 - Essential (primary) hypertension (5) Diabetes Current Visit: Yes Status: Chronic Assessment and plan: We will start patient on medium dose sliding scale insulin coverage and ACHS Accu-Cheks. 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 (7) H/O elbow surgery Current Visit: Yes Status: Chronic Assessment and plan: Elbow excision/surgery in January 2018. -Patient still in sling. -supportive nursing care. (8) Acute kidney injury superimposed on chronic kidney disease Current Visit: Yes Status: Acute Assessment and plan: Cr on admission was 1.79 and BUN of 99. Cr continues to improve today. Azotemia is most likely in the setting of current GI bleed. If does not resolve with GI bleed, will further workup. U/A was unremarkable. Baseline GFR is ~40 and has most likely decreased recently. - monitor renal function - strict I/O - avoid nephrotoxins - gentle hydration (do not want to exacerbate CHF) (9) CHF (congestive heart failure) Current Visit: Yes Status: Chronic Assessment and plan: Patient has known history of CHF. All medications are held for now. - Continue tele monitoring - serial volume status evaluations - gentle hydrations (balance between CHF and CHEVY) Qualifiers: Heart failure type: unspecified Qualified Code(s): I50.9 - Heart failure, unspecified (10) Neuropathy Current Visit: Yes Status: Acute Assessment and plan: nurse notified that patient has burning in legs. Will restart home gabapentin. added on morphine SL yesterday. currently controlled. (11) DVT prophylaxis Current Visit: Yes Status: Acute Assessment and plan: Mechanical 2/2 setting of GI bleed - Time Spent With Patient Total time spent is greater than 50% in coordination of care (as documented) at patient's floor/unit and/or counseling patient: - Subjective Interval history: Seen and examined at bedside. Patient is new to me. Information obtained from chart review and patient report. Says he is weak and tired, still notices bleeding with his bowel movements. No chest pain or shortness of breath. Has some left arm pain from previous fall/surgery. Daughters at bedside and updated. - Constitutional Vitals: Temp Pulse Resp BP Pulse Ox 98.7 F 64 18 147/64 99 03/17/18 13:55 03/17/18 13:55 03/17/18 13:55 03/17/18 13:55 03/17/18 13:55 General appearance: Present: cooperative, A&O X 3, pleasant, obese, answers questions appropriately - Head Head exam: Present: atraumatic, normocephalic - Eye Eye exam: Present: PERRL, conjuntiva pink, sclera anicteric Pupils: Present: PERRL - Neck Neck exam general surgery: Present: supple, trachea midline. Absent: lymphadenopathy - Respiratory Respiratory exam: Present: CTAB. Absent: accessory muscle use, rales, rhonchi, wheezes - Cardiovascular Cardiovascular exam: Present: RRR, +S1, +S2. Absent: diastolic murmur, gallop, rubs, systolic murmur - GI/Abdominal GI/Abdominal exam: Present: normal bowel sounds, soft, no peritoneal signs. Absent: distended, tenderness - Extremities Exam Extremities exam: Present: warm, radial pulses palpable and symmetrical. Absent : calf tenderness, cyanotic, pedal edema Additional comments: Left arm brace - Neurological Exam Neurological exam: Present: CN II-XII intact, oriented X3, no focal deficits. Absent: pronater drift, facial droop, speech deficit - Skin Skin exam: Present: dry, intact Internal Medicine: Result - Labs CBC & Chem 7: 03/17/18 08:06 03/17/18 05:50 Labs: Short CBC 03/17/18 Range/Units 08:06 WBC 5.2 (4.3-11.1) K/mcL Hgb 7.6 L (12.9-16.9) g/dL Hct 23.6 L (37.5-50.1) % Plt Count 94 L (140-400) K/mcL [facility] 03/17/18 05:50 Sodium 145 Potassium 4.4 Chloride 116 H Carbon Dioxide 23 BUN 18 Creatinine 1.21 Glucose 150 H Calcium 8.3 L - ABG Interpretation ABG results: PT/INR, D-dimer PT 12.8 Seconds (9.4-12.1) H 03/13/18 21:26 Consult Discharge Plan - Plan Referrals: Arias Ch Jr, MD [Primary Care Provider] -
[2018-03-17] MEDS ORDERED: 0.9 % Sodium Chloride 250 ML ONE (16:55)
[2018-03-18 05:23] LABS: Mean Corpuscular HGB Conc 32.8 g/dL (31.6-35.5); Mean Platelet Volume 11.9 fL (9.4-12.4)
[2018-03-18 05:25] LABS: Hematocrit 25.6 % (37.5-50.1); Hemoglobin 8.4 g/dL (12.9-16.9); Immature Platelets 4.6 % (1.1-6.1); Mean Corpuscular Hemoglobin 31.7 pg (28.0-33.3); Mean Corpuscular Volume 96.6 fL (83.0-100.0); Red Blood Count 2.65 M/mcL (4.19-5.50); Red Cell Distribution Width 15.4 % (11.5-14.5)
[2018-03-18 05:43] LABS: BUN/Creatinine Ratio 13 (6-26); Blood Urea Nitrogen 17 mg/dL (8-23); Carbon Dioxide 24 mEq/L (23-29); Chloride 114 mEq/L (98-107); Glucose 137 mg/dL (70-105); Osmolality,Calculated 298 (280-300); Potassium 3.7 mEq/L (3.5-5.1); Sodium 142 mEq/L (136-145); eGFR For African Americans > 60 (> 60); eGFR For Non-African Americans 55 (> 60)
[2018-03-18] MEDS: Insulin LISPRO 300 UNITS/3 ML VIAL SQ SCH ×3 (06:36→17:50)
[2018-03-18] MEDS: Gabapentin 300 MG CAPSULE PO SCH ×2 (09:11→21:14)
[2018-03-18] MEDS: Sucralfate 1 GM TABLET PO SCH ×4 (09:11→21:14)
--- NOTE | 2018-03-18 11:40 | General Surgery Progress Note ---
<Jered Mancia - Last Filed: 03/18/18 12:57> Date of Encounter: 03/18/18 Time of Encounter: 08:30 - Assessment and Plan (1) Acute blood loss anemia Current Visit: Yes Status: Acute Pt admitted 03/14 for new onset blood in stool. Hgb stable patient had EGD and colonoscopy yesterday. Non bleeding gastric ulcers, gastritis, hiatal hernia, z line irregular, and white mucosal lesions in gastric mucosa. Biopsies taken, path pending. Colonoscopy was normal. Patient may resume regular diet. Patient will need to be on one month of omeprazole and Carafate. Rxs provided, f/u set up. Patient is able to be discharged from surgery perspective. Subjective Patient reports: no new complaints, tolerating liquids well, voiding w/o difficulty, flatus, no bowel movement, afebrile Narrative: Patient had EGD and colonoscopy yesterday. Non bleedign gastric ulcers, gastritis, hiatal hernia, z line irregular, and white mucosal lesions in gastric mucosa. Biopsies taken, path pending. Explained results of testing to patient and answered all his questions. Patient reports pain is controlled. Patient denies N, V, D, F, chills, SOB, Chest pain. Objective Vital Signs - Last 8 Hours Temp Pulse Resp BP Pulse Ox 03/18/18 11:23 98.9 F 69 14 148/64 95 03/18/18 09:15 95 03/18/18 07:26 98.3 F 63 14 165/67 95 03/18/18 04:09 98.0 F 63 16 136/49 92 Intake and Output 03/17/18 03/18/18 03/18/18 23:59 07:59 15:59 Intake Total 1750 / 1750 480 / 480 Output Total 350 / 350 Balance 1400 / 1400 480 / 480 Intake: IV Fluids 1250 / 1250 0.9 % Sodium Chloride 250 ML @ 250 / 250 0 mls/hr .ROUTE .STK-MED ONE Rx #:[id number] 0.9 % Sodium Chloride 1,000 ML 1000 / 1000 @ 75 mls/hr IVC .[id number] JESSICA Rx #:[id number] Oral 480 / 480 Blood Product 500 / 500 Rbcs Leuko Poor As-1 Unit 500 / 500 [id number] Output: Urine 350 / 350 Other: Meal Breakfast Percent of Meal Consumed 50% Weight 101.6 kg Blood Glucose* 194 149 Patient Weight 03/18/18 23:59 Weight 101.6 kg - General physical appearance well developed, well nourished, no distress - Eyes normal ocular movement - ENT normal mucosa - Neck Neck exam: trachea midline - Respiratory normal expansion, normal respiratory effort, clear to auscultation - Cardiovascular Cardiovascular exam: Present: RRR, no murmurs/rubs/gallops - Abdomen Abdomen: Present: bowel sounds present, soft, non tender - Integumentary no rash - Neurologic normal coordination, normal sensation - Musculoskeletal normal posture - Psychiatric oriented to time, oriented to person, oriented to place, speech is normal, memory intact - Labs 03/18/18 05:05 03/18/18 05:05 Diabetes panel 03/18/18 Range/Units 05:05 Sodium 142 (136-145) mEq/L Potassium 3.7 (3.5-5.1) mEq/L Chloride 114 H (98-107) mEq/L Carbon Dioxide 24 (23-29) mEq/L BUN 17 (8-23) mg/dL Creatinine 1.26 (0.70-1.30) mg/dL Glucose 137 H (70-105) mg/dL Calcium 8.0 L (8.6-10.3) mg/dL Calcium panel 03/18/18 Range/Units 05:05 Calcium 8.0 L (8.6-10.3) mg/dL Pituitary panel 03/18/18 Range/Units 05:05 Sodium 142 (136-145) mEq/L Potassium 3.7 (3.5-5.1) mEq/L Chloride 114 H (98-107) mEq/L Carbon Dioxide 24 (23-29) mEq/L BUN 17 (8-23) mg/dL Creatinine 1.26 (0.70-1.30) mg/dL Glucose 137 H (70-105) mg/dL Calcium 8.0 L (8.6-10.3) mg/dL Adrenal panel 03/18/18 Range/Units 05:05 Sodium 142 (136-145) mEq/L Potassium 3.7 (3.5-5.1) mEq/L Chloride 114 H (98-107) mEq/L Carbon Dioxide 24 (23-29) mEq/L BUN 17 (8-23) mg/dL Creatinine 1.26 (0.70-1.30) mg/dL Glucose 137 H (70-105) mg/dL Calcium 8.0 L (8.6-10.3) mg/dL - VTE Documentation of Mechanical Device: Intermittent pneumatic compression device Consult Discharge Plan - Plan Referrals: Arias Tee [Non-Partnered Physician] - 03/25/18 1:00 pm Arias Ch Jr, MD [Primary Care Provider] - 03/25/18 10:00 am Jamal Rodriguez MD [Partnered Physician] - 03/30/18 1:10 pm Prescriptions: Omeprazole [PriLOSEC] 40 mg PO BID #60 cap Sucralfate [Carafate] 1 gm PO QIDAC #120 tablet <Joslyn Momin - Last Filed: 03/19/18 10:12> Date of Encounter: 03/18/18 - Assessment and Plan (1) Anemia Current Visit: Yes Status: Acute Qualifiers: Anemia type: unspecified type Qualified Code(s): D64.9 - Anemia, unspecified Objective Vital Signs - Last 8 Hours Temp Pulse Resp BP Pulse Ox 03/19/18 07:19 98.6 F 59 18 139/69 92 03/19/18 03:45 98.2 F 55 16 158/76 92 Intake and Output 03/18/18 03/19/18 03/19/18 23:59 07:59 15:59 Intake Total 450 / 450 0 / 0 Output Total 400 / 400 775 / 775 Balance 50 / 50 -775 / -775 Intake: Oral 450 / 450 0 / 0 Output: Urine 400 / 400 775 / 775 Other: Weight 99.79 kg Blood Glucose* 143 143 Patient Weight 03/19/18 23:59 Weight 99.79 kg - Labs 03/19/18 03:31 03/19/18 03:31 Diabetes panel 03/19/18 Range/Units 03:31 Sodium 139 (136-145) mEq/L Potassium 3.5 (3.5-5.1) mEq/L Chloride 110 H (98-107) mEq/L Carbon Dioxide 24 (23-29) mEq/L BUN 18 (8-23) mg/dL Creatinine 1.30 (0.70-1.30) mg/dL Glucose 139 H (70-105) mg/dL Calcium 8.3 L (8.6-10.3) mg/dL Calcium panel 03/19/18 Range/Units 03:31 Calcium 8.3 L (8.6-10.3) mg/dL Pituitary panel 03/19/18 Range/Units 03:31 Sodium 139 (136-145) mEq/L Potassium 3.5 (3.5-5.1) mEq/L Chloride 110 H (98-107) mEq/L Carbon Dioxide 24 (23-29) mEq/L BUN 18 (8-23) mg/dL Creatinine 1.30 (0.70-1.30) mg/dL Glucose 139 H (70-105) mg/dL Calcium 8.3 L (8.6-10.3) mg/dL Adrenal panel 03/19/18 Range/Units 03:31 Sodium 139 (136-145) mEq/L Potassium 3.5 (3.5-5.1) mEq/L Chloride 110 H (98-107) mEq/L Carbon Dioxide 24 (23-29) mEq/L BUN 18 (8-23) mg/dL Creatinine 1.30 (0.70-1.30) mg/dL Glucose 139 H (70-105) mg/dL Calcium 8.3 L (8.6-10.3) mg/dL
--- NOTE | 2018-03-18 16:34 | Internal Med Progress Note ---
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 Hgb dropped to 6.7, previously 12.4 prior to surgery. Left elbow surgery OR notes reviewed and only 10 mL's blood loss estimated. Received 2 units PRBC this hospitalization with improvement in Hgb to 8.4 no evidence of bleeding on EGD/C scope. No active bleeding. Stable. Monitor repeat H&H, iron studies pending. Qualifiers: GI bleed type/associated pathology: melena Qualified Code(s): K92.1 - Melena (2) Gastritis Current Visit: Yes Status: Acute Assessment and plan: 03/17/2018 EGD showed non bleeding gastric ulcers, gastritis, hiatal hernia, z line irregular, and white mucosal lesions in gastric mucosa. Biopsies taken, path pending. Colonoscopy was normal. Continue PPI, Carafate. Qualifiers: Gastritis type: other gastritis Chronicity: acute Gastritis bleeding: with bleeding Qualified Code(s): K29.01 - Acute gastritis with bleeding (3) Acute blood loss anemia Current Visit: Yes Status: Acute Assessment and plan: See plan above under GI bleed. (4) CAD (coronary artery disease) Current Visit: Yes Status: Chronic Assessment and plan: Hold home medications for now. Qualifiers: Coronary Disease-Associated Artery/Lesion type: [place] artery [place] vs. transplanted heart: [place] heart Associated angina: without angina Qualified Code(s): I25.10 - Atherosclerotic heart disease of [place] coronary artery without angina pectoris (5) HTN (hypertension) Current Visit: Yes Status: Chronic Assessment and plan: Hold all medications for now. Add PRN hydralazine Qualifiers: Hypertension type: essential hypertension Qualified Code(s): I10 - Essential (primary) hypertension (6) Diabetes Current Visit: Yes Status: Chronic Assessment and plan: We will start patient on medium dose sliding scale insulin coverage and ACHS Accu-Cheks. 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 (8) H/O elbow surgery Current Visit: Yes Status: Chronic Assessment and plan: Elbow excision/surgery in January 2018. -Patient still in sling. -supportive nursing care. (9) Acute kidney injury superimposed on chronic kidney disease Current Visit: Yes Status: Acute Assessment and plan: Cr on admission was 1.79 and BUN of 99. Cr continues to improve today. Azotemia is most likely in the setting of current GI bleed. If does not resolve with GI bleed, will further workup. U/A was unremarkable. Baseline GFR is ~40 and has most likely decreased recently. - monitor renal function - strict I/O - avoid nephrotoxins - gentle hydration (do not want to exacerbate CHF) (10) CHF (congestive heart failure) Current Visit: Yes Status: Chronic Assessment and plan: Patient has known history of CHF. All medications are held for now. - Continue tele monitoring - serial volume status evaluations - gentle hydrations (balance between CHF and CHEVY) Qualifiers: Heart failure type: unspecified Qualified Code(s): I50.9 - Heart failure, unspecified (11) Neuropathy Current Visit: Yes Status: Acute Assessment and plan: nurse notified that patient has burning in legs. Will restart home gabapentin. added on morphine SL yesterday. currently controlled. (12) DVT prophylaxis Current Visit: Yes Status: Acute Assessment and plan: Mechanical 2/2 setting of GI bleed - Time Spent With Patient Total time spent is greater than 50% in coordination of care (as documented) at patient's floor/unit and/or counseling patient: - Subjective Interval history: Seen and examined at bedside. Patient is new to me. Information obtained from chart review and patient report. Says he is weak and tired, still notices bleeding with his bowel movements. No chest pain or shortness of breath. Has some left arm pain from previous fall/surgery. Daughters at bedside and updated. - Constitutional Vitals: Temp Pulse Resp BP Pulse Ox 99.9 F H 65 14 159/73 95 03/18/18 15:41 03/18/18 15:41 03/18/18 15:41 03/18/18 15:41 03/18/18 15:41 General appearance: Present: cooperative, A&O X 3, pleasant, obese, answers questions appropriately Internal Medicine: Result - Labs CBC & Chem 7: 03/18/18 05:05 03/18/18 05:05 Labs: Short CBC 03/18/18 Range/Units 05:05 WBC 6.0 (4.3-11.1) K/mcL Hgb 8.4 L (12.9-16.9) g/dL Hct 25.6 L (37.5-50.1) % Plt Count 91 L (140-400) K/mcL BMP 03/18/18 05:05 Sodium 142 Potassium 3.7 Chloride 114 H Carbon Dioxide 24 BUN 17 Creatinine 1.26 Glucose 137 H Calcium 8.0 L - ABG Interpretation ABG results: PT/INR, D-dimer PT 12.8 Seconds (9.4-12.1) H 03/13/18 21:26 - VTE Documentation of Mechanical Device: Intermittent pneumatic compression device Consult Discharge Plan - Plan Referrals: Arias Ch Jr, MD [Primary Care Provider] - Jamal Rodriguez MD [Partnered Physician] - 03/30/18 1:10 pm Prescriptions: Omeprazole [PriLOSEC] 40 mg PO BID #60 cap Sucralfate [Carafate] 1 gm PO QIDAC #120 tablet
[2018-03-18 17:24] LABS: % Iron Saturation 12 % (20-55); Ferritin 63 ng/ml (20-250); Iron 33 mcg/dL (65-175); Transferrin 190 mg/dL (203-362)
[2018-03-18] MEDS: Metoprolol XL (24 HR) Succ 50 MG TAB.ER.24H PO SCH (21:14)
[2018-03-18] MEDS: 0.9 % Sodium Chloride 1,000 ML IVC SCH (21:26)
[2018-03-19 04:59] LABS: Hematocrit 26.2 % (37.5-50.1); Hemoglobin 8.6 g/dL (12.9-16.9); Mean Corpuscular HGB Conc 32.8 g/dL (31.6-35.5); Mean Corpuscular Hemoglobin 30.9 pg (28.0-33.3); Mean Corpuscular Volume 94.2 fL (83.0-100.0); Mean Platelet Volume 12.5 fL (9.4-12.4); Platelet Count 102 K/mcL (140-400); Red Blood Count 2.78 M/mcL (4.19-5.50); Red Cell Distribution Width 15.4 % (11.5-14.5)
[2018-03-19 05:17] LABS: BUN/Creatinine Ratio 14 (6-26); Blood Urea Nitrogen 18 mg/dL (8-23); Calcium 8.3 mg/dL (8.6-10.3); Carbon Dioxide 24 mEq/L (23-29); Chloride 110 mEq/L (98-107); Glucose 139 mg/dL (70-105); Osmolality,Calculated 292 (280-300); Potassium 3.5 mEq/L (3.5-5.1); Sodium 139 mEq/L (136-145); eGFR For African Americans > 60 (> 60); eGFR For Non-African Americans 53 (> 60)
[2018-03-19 07:20] VITALS: BP 139/69
[2018-03-19] MEDS ORDERED: Insulin LISPRO 300 UNITS/3 ML VIAL SQ SCH ×2 (07:30→21:00)
[2018-03-19] MEDS ORDERED: Furosemide 40 MG TABLET PO SCH (09:00)
[2018-03-19] MEDS ORDERED: Aspirin Enteric Coated 81 MG Tablet PO SCH (09:00)
[2018-03-19] MEDS: Sucralfate 1 GM TABLET PO SCH (09:17)
[2018-03-19] MEDS: Gabapentin 300 MG CAPSULE PO SCH (09:18)
[2018-03-19] MEDS: Metoprolol XL (24 HR) Succ 50 MG TAB.ER.24H PO SCH (09:19)
--- NOTE | 2018-03-19 09:42 | Discharge Summary ---
- NOTES TO OUTPATIENT PROVIDER Notes to Outpatient Provider: Rec CBC within one week Orders not resulted at time of discharge: Pending orders 03/17/18 14:56 Surgical Pathology [PTH] Routine 03/19/18 03:31 Complete Blood Count w/o Diff [HEME] AM 0400 Pathologist Blood Smear Review [HEME] Routine 03/20/18 04:00 BMP [Basic Metabolic Panel] AM 0400 Complete Blood Count w/o Diff [HEME] AM 0400 03/21/18 04:00 BMP [Basic Metabolic Panel] AM 0400 Complete Blood Count w/o Diff [HEME] AM 0400 03/22/18 04:00 Complete Blood Count w/o Diff [HEME] AM 0400 Date of Encounter: 03/19/18 Time of Encounter: 09:38 - Discharge Diagnosis (1) Acute blood loss anemia Priority: Primary Status: Acute Comments: presented with multiple days of bright red blood from rectum. Hgb 12.4 on and dropped to 6.7. Received 2 units PRBC with improvement in hemoglobin. EGD with non bleeding gastric ulcers, gastritis, hiatal hernia (biopsies taken, path pending). Colonoscopy was normal. No bleeding recurrence and Hgb stabilized. Will need to be on omeprazole and Carafate for one month per general surgery recommendations. Holding ASA, Plavix until seen by his primary division controller. Recommend repeat CBC within one week. (2) Gastritis Priority: Primary Status: Acute Comments: per EGD. Cont carafate, PPI Qualifiers: Gastritis type: other gastritis Chronicity: acute Gastritis bleeding: with bleeding Qualified Code(s): K29.01 - Acute gastritis with bleeding (3) CAD (coronary artery disease) Priority: Secondary Status: Chronic Comments: hx CABG and stents. Holding home ASA, plavix until seen by primary division controller. Cont home statin, BB Qualifiers: Coronary Disease-Associated Artery/Lesion type: [place] artery [place] vs. transplanted heart: [place] heart Associated angina: without angina Qualified Code(s): I25.10 - Atherosclerotic heart disease of [place] coronary artery without angina pectoris (4) HTN (hypertension) Priority: Secondary Status: Chronic Comments: per hx. BP controlled. Cont home BP medication Qualifiers: Hypertension type: essential hypertension Qualified Code(s): I10 - Essential (primary) hypertension (5) Diabetes Priority: Secondary Status: Chronic Comments: per hx. Cont home diabetes medication regimen Qualifiers: Diabetes mellitus type: type 2 Diabetes mellitus lobsterman insulin use: with lobsterman use Diabetes mellitus complication status: with kidney complications Diabetes mellitus complication detail: with chronic kidney disease Chronic kidney disease stage: stage 3 (moderate) Qualified Code(s): E11.22 - Type 2 diabetes mellitus with diabetic chronic kidney disease; N18.3 - Chronic kidney disease, stage 3 (moderate); N18.3 - Chronic kidney disease, stage 3 (moderate); Z79.4 - care home (current) use of insulin; Z79.4 - exterminator (current) use of insulin; Z79.4 - exterminator (current) use of insulin; Z79.4 - care home (current) use of insulin (6) History of CVA (cerebrovascular accident) Priority: Secondary Status: Chronic Comments: per hx. neurologically intact. No deficits apparent. Holding home ASA, Plavix. 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 Rodriguez. Follow-up with Ortho outpatient as previously planned. (8) Acute kidney injury superimposed on chronic kidney disease Priority: Primary Status: Acute Comments: Suspect prerenal with hypovolemia. Renal function normalized with IV fluids. Recommend repeat CMP with PCP within one week (9) CHF (congestive heart failure) Priority: Secondary Status: Chronic Comments: suspect chronic diastolic heart failure. No echocardiogram available for review. Appeared euvolemic. Patient reported his division controller stopped Lasix. Follow-up with his primary division controller outpatient. Cont home BB, ARB. Qualifiers: Heart failure type: unspecified Qualified Code(s): I50.9 - Heart failure, unspecified (10) Bicytopenia Priority: Primary Status: Acute Comments: With anemia and thrombocytopenia. Received 2 units PRBC this hospitalization as noted above. No active bleeding, hemodynamically stable. Iron studies show evidence of iron deficiency anemia, start iron supplementation. Recommend outpatient follow-up with hematology. Peripheral blood smear pending. (11) Neuropathy Priority: Secondary Status: Acute Comments: per hx. Cont gabapentin Hospital course: Please see assessment and plan for Hospital course Discharge discussed with: patient (Seen and examined at bedside. Says he feels better and would like to go home today. No further bleeding. No chest pain, no shortness of breath. He is aware to hold aspirin and Plavix until seen by his division controller.) - Time Spent with Patient Total time spent providing and/or coordinating discharge services: - Discharge Medications Prescriptions: Ferrous Sulfate 325 mg PO BID #60 tablet Omeprazole [PriLOSEC] 40 mg PO BID #60 cap Sucralfate [Carafate] 1 gm PO QIDAC #120 tablet Home Medications: Atorvastatin Calcium 80 mg PO DAILY 02/17/18 [History] Gabapentin [Neurontin] 300 mg PO BID 02/17/18 [History] Insulin ASPART [Novolog Flexpen] 0 units SQ TID 02/17/18 [History] Insulin Glargine,Hum.rec.anlog [Lantus Solostar] 32 units SQ DAILY 02/17/18 [ History] Losartan Potassium [Cozaar] 100 mg PO DAILY 02/17/18 [History] Potassium 99 mg PO DAILY 02/17/18 [History] Tramadol HCl [Ultram] 50 mg PO BID PRN 02/17/18 [History] Vit C/E/Zn/Coppr/Lutein/Zeaxan [Preservision Areds 2 Softgel] 1 cap PO DAILY [History] Docusate [Colace] 100 mg PO DAILY 03/14/18 [History] Metoprolol Succinate [Toprol Xl] 50 mg PO BID 03/14/18 [History] Omeprazole [PriLOSEC] 40 mg PO BID #60 cap 03/18/18 [Rx] Sucralfate [Carafate] 1 gm PO QIDAC #120 tablet 03/18/18 [Rx] Ferrous Sulfate 325 mg PO BID #60 tablet 03/19/18 [Rx] Allergies/Adverse Reactions: 3 Allergy/AdvReac Type Severity Reaction Status Date / Time iodine Allergy See Verified 02/17/18 12:08 Comments Date of admission: 03/14/18 06:01 Primary care physician: Arias Ch Jr, MD Consults: 03/17/18 15:20 Consult to Physical Therapy [CONS] Routine Comment: Evaluate, develop and implement POC Reason for Consult: deconditioning and weakness do not know what your third questions means exactly Does patient have active BEDREST order?: No Is patient medically & hemodynamically stable?: Yes Patient assessed for mobility or mobilized this visit?: No Discharging clinician: Kori Car Anticipated date of discharge: 03/19/18 - Constitutional Vitals: Temp Pulse Resp BP Pulse Ox 98.6 F 59 18 139/69 92 03/19/18 07:19 03/19/18 07:19 03/19/18 07:19 03/19/18 07:19 03/19/18 07:19 General appearance: Present: cooperative, A&O X 3, pleasant, obese, answers questions appropriately - Head Head exam: Present: atraumatic, normocephalic - Eye Eye exam: Present: PERRL, conjuntiva pink, sclera anicteric Pupils: Present: PERRL - Neck Neck exam general surgery: Present: supple, trachea midline. Absent: lymphadenopathy - Respiratory Respiratory exam: Present: CTAB. Absent: accessory muscle use, rales, rhonchi, wheezes - Cardiovascular Cardiovascular exam: Present: RRR, +S1, +S2. Absent: diastolic murmur, gallop, rubs, systolic murmur - GI/Abdominal GI/Abdominal exam: Present: normal bowel sounds, soft, no peritoneal signs. Absent: distended, tenderness - Extremities Exam Extremities exam: Present: warm, radial pulses palpable and symmetrical. Absent : calf tenderness, cyanotic, pedal edema - Neurological Exam Neurological exam: Present: CN II-XII intact, oriented X3, no focal deficits. Absent: pronater drift, facial droop, speech deficit - Skin Skin exam: Present: dry, intact - Patient Status Disposition: Home, Self-Care Condition: Good Functional capacity at discharge: uses cane/walker Overall status at discharge: patient is back to baseline - Discharge Instructions Instructions: Anemia (DC), Sucralfate (By mouth), Omeprazole (By mouth) Follow Up With: Arias Ch Jr, MD [Primary Care Provider] - Jamal Rodriguez MD [Partnered Physician] - 03/30/18 1:10 pm Brit Vanegas MD [Partnered Physician] - 03/24/18 11:20 am (Please follow up with Dr. Vanegas for further evaluation of your low hemoglobin and low platelet count.) Additional Instructions: You have a follow-up appt with Dr. Bowman on 03/25/2018 at 1:00 pm. Please ask him about resuming your aspirin and Plavix - Diet and Activity Activity: increase activity as tolerated Diet: advance to your usual diet - VTE Documentation of Mechanical Device: Intermittent pneumatic compression device
--- NOTE | 2018-03-20 08:58 | Electrocardiograph Report ---
[address] [address] Test Date: 2018-03-13 Pat Name: Cheyenne Manley Department: 102 Room: 3B Gender: M Base Filler: : 1935 Requested By: [id number] Order Number: [id number] Reading MD: Luis Dejesus Measurements Intervals [place] Rate: 100 P: 27 TN: 159 QRS: 82 QRSD: 91 T: 204 QT: 328 QTc: 385 Interpretive Statements SINUS TACHYCARDIA WITH OCCASIONAL SUPRAVENTRICULAR PREMATURE COMPLEXES NONSPECIFIC ST & T-WAVE ABNORMALITY Electronically Signed On 03-20-2018 8:57:00 EDT by Luis Dejesus
--- NOTE | 2018-03-28 14:25 | Emergency Department Note ---
Disposition Clinical Impression: GI bleed Anemia Qualifiers: Anemia type: unspecified type Qualified Code(s): D64.9 - Anemia, unspecified Altered mental status Qualifiers: Altered mental status type: unspecified Qualified Code(s): R41.82 - Altered mental status, unspecified Disposition: Admitted As Inpatient Condition: Good General Adult HPI - General Chief complaint: ED Syncope Stated complaint: Bloody Stool Time Seen by Provider: 03/13/18 20:20 Source: patient, family, EMS Limitations: no limitations - History of Present Illness Pain Scale: 6 - Related Data Home Medications Medication Instructions Recorded Confirmed Gabapentin [Neurontin] 300 mg PO BID 02/17/18 03/24/18 Insulin ASPART [Novolog Flexpen] 11 units SQ BID 02/17/18 03/24/18 Insulin Glargine,Hum.rec.anlog 20 units SQ DAILY 02/17/18 03/24/18 [Lantus Solostar] Losartan Potassium [Cozaar] 100 mg PO DAILY 02/17/18 03/24/18 Potassium 99 mg PO DAILY 02/17/18 03/24/18 Tramadol HCl [Ultram] 50 mg PO BID PRN 02/17/18 03/24/18 Vit C/E/Zn/Coppr/Lutein/Zeaxan 1 cap PO DAILY 02/17/18 03/24/18 [Preservision Areds 2 Softgel] Docusate [Colace] 2 tab PO HS 03/14/18 03/24/18 Metoprolol Succinate [Toprol Xl] 50 mg PO BID 03/14/18 03/14/18 Multivitamin [Multivitamins] 1 each PO DAILY 03/24/18 03/24/18 Omeprazole [PriLOSEC] 40 mg PO DAILY 03/24/18 03/24/18 Previous Rx's Medication Instructions Recorded Sucralfate [Carafate] 1 gm PO QIDAC #120 tablet 03/18/18 Allergies Allergy/AdvReac Type Severity Reaction Status Date / Time iodine Allergy See Verified 03/24/18 11:46 Comments Constitutional: Reports: other (States that he generally does not feel well) Respiratory: Denies: dyspnea Gastrointestinal: Reports: nausea, vomiting, melena Past Medical History - Past Medical History Medical history: Reports: arthritis, coronary artery disease, CVA, diabetes, hyperlipidemia, hypertension, kidney stones, myocardial infarction Surgical history: Reports: angioplasty/stent, coronary bypass (CABG) Psychiatric history: Reports: no psych history - Social History Smoking Status: Unknown if ever smoked Smokeless Tobacco Status: No Alcohol use: Reports: none Drug use: Reports: none Physical Exam - General Limitations: no limitations General appearance: alert, in no apparent distress Course Vital Signs Temperature 98 F 03/13/18 20:04 Pulse Rate 100 03/13/18 20:04 Respiratory Rate 20 03/13/18 20:04 Blood Pressure 145/64 03/13/18 20:04 O2 Sat by Pulse Oximetry 94 03/13/18 20:04 Temperature 98.6 F 03/19/18 07:19 Pulse Rate 59 03/19/18 07:19 Respiratory Rate 18 03/19/18 07:19 Blood Pressure 139/69 03/19/18 07:19 O2 Sat by Pulse Oximetry 92 03/19/18 07:19 Oxygen Delivery Oxygen Delivery Room Air Medical Decision Making - Lab Data Result diagrams: 03/19/18 03:31 03/19/18 03:31 Lab Results 03/13/18 03/13/18 03/13/18 Range/Units 21:02 21:26 21:26 WBC 11.8 H (4.3-11.1) K/mcL RBC 2.48 L (4.19-5.50) M/mcL Hgb 7.9 L (12.9-16.9) g/dL Hct 24.0 L (37.5-50.1) % MCV 96.8 (83.0-100.0) fL MCH 31.9 (28.0-33.3) pg MCHC 32.9 (31.6-35.5) g/dL RDW 14.8 H (11.5-14.5) % Plt Count 144 (140-400) K/mcL MPV 12.0 (9.4-12.4) fL Immature Gran % 0.6 (0-4) % Seg Neutrophils % 77.1 % Lymphocytes % 16.9 % Monocytes % 5.1 % Eosinophils % 0.1 % Basophils % 0.2 % Neutrophils # 9.1 H (1.6-8.9) K/mcL Lymphocytes # 2.0 (0.6-4.6) K/mcL Monocytes # 0.6 (0.0-1.3) K/mcL Eosinophils # 0.0 (0.0-0.6) K/mcL Basophils # 0.0 (0.0-0.2) K/mcL PT 12.8 H (9.4-12.1) Seconds INR 1.2 Sodium (136-145) mEq/L Potassium (3.5-5.1) mEq/L Chloride (98-107) mEq/L Carbon Dioxide (23-29) mEq/L BUN (8-23) mg/dL Creatinine (0.70-1.30) mg/dL Est GFR ( Amer) (> 60) Est GFR (Non-Af Amer) (> 60) BUN/Creatinine Ratio (6-26) Glucose (70-105) mg/dL POC Glucose (70-99) mg/dL Calculated Osmolality (280-300) Calcium (8.6-10.3) mg/dL Urine Color Yellow (Yellow) Urine Clarity Clear (Clear) Urine pH 5.5 (5.0-8.0) pH Units Ur Specific [place] 1.023 (1.010-1.025) Urine Protein Negative (Neg-Trace) mg/dL Urine Glucose (UA) Normal (Normal) mg/dL Urine Ketones Negative (Negative) mg/dL Urine Blood Negative (Negative) Urine Nitrite Negative (Negative) Urine Bilirubin Negative (Negative) Urine Urobilinogen Normal (Normal) mg/dL Ur Leukocyte Esterase Negative (Negative) Blood Type Antibody Screen Crossmatch 03/13/18 03/13/18 03/14/18 Range/Units 21:26 21:26 01:11 WBC (4.3-11.1) K/mcL RBC (4.19-5.50) M/mcL Hgb (12.9-16.9) g/dL Hct (37.5-50.1) % MCV (83.0-100.0) fL MCH (28.0-33.3) pg MCHC (31.6-35.5) g/dL RDW (11.5-14.5) % Plt Count (140-400) K/mcL MPV (9.4-12.4) fL Immature Gran % (0-4) % Seg Neutrophils % % Lymphocytes % % Monocytes % % Eosinophils % % Basophils % % Neutrophils # (1.6-8.9) K/mcL Lymphocytes # (0.6-4.6) K/mcL Monocytes # (0.0-1.3) K/mcL Eosinophils # (0.0-0.6) K/mcL Basophils # (0.0-0.2) K/mcL PT (9.4-12.1) Seconds INR Sodium 140 (136-145) mEq/L Potassium 4.4 (3.5-5.1) mEq/L Chloride 109 H (98-107) mEq/L Carbon Dioxide 22 L (23-29) mEq/L BUN 99 H (8-23) mg/dL Creatinine 1.79 H (0.70-1.30) mg/dL Est GFR ( Amer) 44 L (> 60) Est GFR (Non-Af Amer) 36 L (> 60) BUN/Creatinine Ratio 55 H (6-26) Glucose 283 H (70-105) mg/dL POC Glucose 274 H (70-99) mg/dL Calculated Osmolality 331 H (280-300) Calcium 9.5 (8.6-10.3) mg/dL Urine Color (Yellow) Urine Clarity (Clear) Urine pH (5.0-8.0) pH Units Ur Specific [place] (1.010-1.025) Urine Protein (Neg-Trace) mg/dL Urine Glucose (UA) (Normal) mg/dL Urine Ketones (Negative) mg/dL Urine Blood (Negative) Urine Nitrite (Negative) Urine Bilirubin (Negative) Urine Urobilinogen (Normal) mg/dL Ur Leukocyte Esterase (Negative) Blood Type O POSITIVE Antibody Screen NEGATIVE Crossmatch See Detail 03/14/18 03/14/18 Range/Units 01:21 04:30 WBC 10.0 (4.3-11.1) K/mcL RBC 2.41 L (4.19-5.50) M/mcL Hgb 6.7 L 7.5 L (12.9-16.9) g/dL Hct 21.4 L 23.1 L (37.5-50.1) % MCV 95.9 (83.0-100.0) fL MCH 31.1 (28.0-33.3) pg MCHC 32.5 (31.6-35.5) g/dL RDW 14.4 (11.5-14.5) % Plt Count 118 L (140-400) K/mcL MPV 12.0 (9.4-12.4) fL Immature Gran % 0.4 (0-4) % Seg Neutrophils % 70.5 % Lymphocytes % 21.4 % Monocytes % 7.1 % Eosinophils % 0.3 % Basophils % 0.3 % Neutrophils # 7.1 (1.6-8.9) K/mcL Lymphocytes # 2.2 (0.6-4.6) K/mcL Monocytes # 0.7 (0.0-1.3) K/mcL Eosinophils # 0.0 (0.0-0.6) K/mcL Basophils # 0.0 (0.0-0.2) K/mcL PT (9.4-12.1) Seconds INR Sodium (136-145) mEq/L Potassium (3.5-5.1) mEq/L Chloride (98-107) mEq/L Carbon Dioxide (23-29) mEq/L BUN (8-23) mg/dL Creatinine (0.70-1.30) mg/dL Est GFR ( Amer) (> 60) Est GFR (Non-Af Amer) (> 60) BUN/Creatinine Ratio (6-26) Glucose (70-105) mg/dL POC Glucose (70-99) mg/dL Calculated Osmolality (280-300) Calcium (8.6-10.3) mg/dL Urine Color (Yellow) Urine Clarity (Clear) Urine pH (5.0-8.0) pH Units Ur Specific [place] (1.010-1.025) Urine Protein (Neg-Trace) mg/dL Urine Glucose (UA) (Normal) mg/dL Urine Ketones (Negative) mg/dL Urine Blood (Negative) Urine Nitrite (Negative) Urine Bilirubin (Negative) Urine Urobilinogen (Normal) mg/dL Ur Leukocyte Esterase (Negative) Blood Type Antibody Screen Crossmatch Attestation Statement - Attestation Attestation: I examined this patient and my medical decision-making was reviewed with the Resident Physician. I agree with the documented findings, disposition and treatment plan as described except to the extent set forth below. Hemodynamically stable GI bleed with a hemoglobin of 7.9, down [address] Warren spoke with the hospitalist and with the endoscopist, patient accepted for admission.
== END 2018-03-19 11:10 | disposition home or self-care (01) | DRG 378 ==
LOC: EMEROO 19:58 → 3BNU 19:58 → SUATTDRO 03-14 06:01
PROVIDERS: ADMIT Internal Medicine; ATTEND Internal Medicine
PROC: ENDOEBX (2018-03-17 14:00)

== ENCOUNTER 2021-01-13 15:45 | Inpatient (IN) ==
[2021-01-13] MEDS ORDERED: 0.9 % Sodium Chloride 1,000 ML IVC ONE (15:55)
[2021-01-13] MEDS ORDERED: Ondansetron 4 MG/2 ML VIAL IVP ONE (15:56)
[2021-01-13 16:19] LABS: VBG HCO3 23 mEq/L (21-27); VBG PCO2 32 mmHg (41-51); VBG PH 7.46 pH Units (7.32-7.42); VBG PO2 156 mmHg (25-50)
[2021-01-13 16:24] LABS: Basophils % 0.1 %; Hemoglobin 13.8 g/dL (12.9-16.9); Mean Corpuscular Volume 97.6 fL (83.0-100.0)
[2021-01-13 16:26] LABS: Hematocrit 40.4 % (37.5-50.1); Immature Granulocytes % 1.3 % (0-4); Immature Platelets 5.1 % (1.1-6.1); Lymphocytes # 1.1 K/mcL (0.6-4.6); Lymphocytes % 6.8 %; Mean Corpuscular HGB Conc 34.2 g/dL (31.6-35.5); Mean Corpuscular Hemoglobin 33.3 pg (28.0-33.3); Mean Platelet Volume 11.8 fL (9.4-12.4); Monocytes # 1.2 K/mcL (0.0-1.3); Monocytes % 7.1 %; Neutrophils # 13.8 K/mcL (1.6-8.9); Red Blood Count 4.14 M/mcL (4.19-5.50); Red Cell Distribution Width 14.5 % (11.5-14.5); Segmented Neutrophils % 84.7 %; White Blood Count 16.3 K/mcL (4.3-11.1)
[2021-01-13 16:27] LABS: Platelet Count 90 K/mcL (140-400)
[2021-01-13 16:43] LABS: Troponin I 0.31 ng/mL (< 0.04)
[2021-01-13] MEDS ORDERED: Aspirin 81 MG TAB.CHEW PO ONE (16:43)
[2021-01-13 16:59] LABS: Albumin 3.7 g/dL (3.5-5.7); Albumin/Globulin Ratio 1.5 (1.1-2.2); Bilirubin,Direct 0.5 mg/dL (0.0-0.2); Bilirubin,Indirect 1.3 mg/dL (0.0-1.0); Bilirubin,Total 1.8 mg/dL (0.3-1.0); Calcium 9.8 mg/dL (8.6-10.3); Globulin 2.4 g/dL (2.4-3.5); Potassium 4.3 mEq/L (3.5-5.1); Total Protein 6.1 g/dL (6.4-8.9)
[2021-01-13 17:40] LABS: Bilirubin,Urine Negative (Negative); Blood,Urine Large (Negative); Clarity,Urine Clear (Clear); Color,Urine Yellow (Yellow); Glucose,Urine (UA) >=1000 mg/dL (Normal); Ketones,Urine Negative (Negative); Leukocyte Esterase,Urine Negative (Negative); Mucus,Urine Few per lpf (None-Few); Nitrite,Urine Negative (Negative); Protein,Urine >=300 mg/dL (Neg-Trace); Specific Gravity,Urine 1.025 (1.010-1.025); Urobilinogen,Urine Normal (Normal)
[2021-01-13] MEDS ORDERED: Piperacillin/Tazobactam 3.375 GM in 0.9 % Sodium Chloride Mini Bag 100 ML IVPB ONE (17:40)
[2021-01-13] MEDS ORDERED: Naloxone 0.4 MG/ML INJ IVP PRN (19:39)
[2021-01-13] MEDS ORDERED: D5% in Water 1,000 ML IVC PRN (19:41)
[2021-01-13] MEDS ORDERED: Dextrose Gel 15 GM/37.5 ML TUBE PO PRN ×2 (19:41)
[2021-01-13] MEDS ORDERED: *HR* Dextrose 50 % in Water (Vial) 50 ML VIAL IVP PRN (19:41)
[2021-01-13] MEDS: 0.9 % Sodium Chloride 1,000 ML IVC SCH (21:55)
[2021-01-13] MEDS: Insulin DETEMIR 100 UNIT/ML X5UNITS SUBQ SCH (21:56)
[2021-01-14] MEDS: Insulin LISPRO 300 UNITS/3 ML VIAL SUBQ SCH ×4 (00:23→19:07)
[2021-01-14] MEDS: Ondansetron 4 MG/2 ML VIAL IVP PRN ×2 (00:24→22:44)
[2021-01-14] MEDS: Piperacillin/Tazobactam 3.375 GM in 0.9 % Sodium Chloride Mini Bag 100 ML IVPB SCH ×3 (04:07→22:38)
[2021-01-14 05:11] LABS: Lymphocytes % 10.6 %; Red Cell Distribution Width 14.6 % (11.5-14.5)
[2021-01-14 05:13] LABS: Basophils % 0.1 %; Hematocrit 39.3 % (37.5-50.1); Hemoglobin 13.2 g/dL (12.9-16.9); Immature Granulocytes % 0.5 % (0-4); Immature Platelets 6.6 % (1.1-6.1); Lymphocytes # 1.1 K/mcL (0.6-4.6); Mean Corpuscular HGB Conc 33.6 g/dL (31.6-35.5); Mean Corpuscular Volume 98.3 fL (83.0-100.0); Mean Platelet Volume 11.7 fL (9.4-12.4); Monocytes # 0.6 K/mcL (0.0-1.3); Monocytes % 5.9 %; Neutrophils # 8.3 K/mcL (1.6-8.9); Segmented Neutrophils % 82.9 %
[2021-01-14 05:14] LABS: Platelet Count 78 K/mcL (140-400)
[2021-01-14 05:26] LABS: Calcium 9.2 mg/dL (8.6-10.3); Magnesium 1.7 mg/dL (1.6-2.6); Phosphorous 2.7 mg/dL (2.7-4.5); Potassium 4.2 mEq/L (3.5-5.1)
[2021-01-14] MEDS: *HR* Heparin 5,000 UNIT/ML VIAL SQ SCH ×2 (05:53→19:06)
[2021-01-14] MEDS: 0.9 % Sodium Chloride 1,000 ML IVC SCH (06:04)
[2021-01-14] MEDS: Insulin DETEMIR 100 UNIT/ML X5UNITS SUBQ SCH (23:00)
[2021-01-15] MEDS: Insulin LISPRO 300 UNITS/3 ML VIAL SUBQ SCH ×5 (05:20→22:16)
[2021-01-15] MEDS: Piperacillin/Tazobactam 3.375 GM in 0.9 % Sodium Chloride Mini Bag 100 ML IVPB SCH ×3 (05:21→22:17)
[2021-01-15] MEDS: *HR* Heparin 5,000 UNIT/ML VIAL SQ SCH (05:22)
[2021-01-15] MEDS ORDERED: *HR* Metoprolol 5 MG/5 ML VIAL IVP ONE ×2 (05:59→11:01)
[2021-01-15] MEDS: Ondansetron 4 MG/2 ML VIAL IVP PRN (07:05)
[2021-01-15 07:18] LABS: Hematocrit 37.8 % (37.5-50.1); Hemoglobin 12.4 g/dL (12.9-16.9); Immature Platelets 7.9 % (1.1-6.1); Mean Corpuscular HGB Conc 32.8 g/dL (31.6-35.5); Mean Corpuscular Hemoglobin 32.5 pg (28.0-33.3); Mean Corpuscular Volume 99.2 fL (83.0-100.0); Mean Platelet Volume 12.3 fL (9.4-12.4); Red Blood Count 3.81 M/mcL (4.19-5.50); Red Cell Distribution Width 14.9 % (11.5-14.5); White Blood Count 8.9 K/mcL (4.3-11.1)
[2021-01-15 07:29] LABS: Platelet Count 65 K/mcL (140-400)
[2021-01-15 07:34] LABS: Calcium 8.9 mg/dL (8.6-10.3)
[2021-01-15 08:11] LABS: Lymphocytes # 1.3 K/mcL (0.6-4.6); Monocytes # 0.4 K/mcL (0.0-1.3); Neutrophils # 7.3 K/mcL (1.6-8.9); Platelet Estimate Decreased (Normal)
[2021-01-15] MEDS ORDERED: Aspirin Enteric Coated 81 MG Tablet PO SCH (09:00)
[2021-01-15] MEDS ORDERED: OMEPRAZOLE 20 MG PO SCH (09:00)
[2021-01-15] MEDS ORDERED: Furosemide 40 MG/4 ML VIAL IVP ONE (09:00)
[2021-01-15] MEDS ORDERED: Perflutren Lipid Microsphere 1.3 ML in 0.9 % Sodium Chloride 8.7 ML IVP PRN (11:19)
[2021-01-15] MEDS ORDERED: *HR* Heparin 5,000 UNIT/ML VIAL IVP PRN ×2 (11:20)
[2021-01-15 11:59] LABS: Hematocrit 37.7 % (37.5-50.1); Hemoglobin 12.4 g/dL (12.9-16.9); Mean Corpuscular HGB Conc 32.9 g/dL (31.6-35.5)
[2021-01-15 12:01] LABS: Immature Platelets 7.6 % (1.1-6.1); Mean Corpuscular Hemoglobin 32.8 pg (28.0-33.3); Mean Corpuscular Volume 99.7 fL (83.0-100.0); Mean Platelet Volume 11.3 fL (9.4-12.4); Red Blood Count 3.78 M/mcL (4.19-5.50); Red Cell Distribution Width 14.8 % (11.5-14.5); White Blood Count 10.2 K/mcL (4.3-11.1)
[2021-01-15 12:03] LABS: Heparin anti-factor XA UFH < 0.04 IU/mL (0.30-0.70)
[2021-01-15 12:04] LABS: INR 1.2; Prothrombin Time 13.8 Seconds (9.4-12.1)
[2021-01-15] MEDS: DilTIAZem 50 MG/50 ML IV.SOLN IVC SCH ×2 (15:26→16:07)
[2021-01-15] MEDS: Heparin 25,000UNIT/250ML 1/2NS 25,000 UNIT/250 ML IV.SOLN IVC SCH (15:51)
[2021-01-15] MEDS: Insulin DETEMIR 100 UNIT/ML X5UNITS SUBQ SCH (22:16)
[2021-01-16] MEDS: Piperacillin/Tazobactam 3.375 GM in 0.9 % Sodium Chloride Mini Bag 100 ML IVPB SCH ×3 (03:35→18:52)
[2021-01-16] MEDS: Heparin 25,000UNIT/250ML 1/2NS 25,000 UNIT/250 ML IV.SOLN IVC SCH (04:14)
[2021-01-16 06:09] LABS: Eosinophils % 0.1 %; Hematocrit 34.2 % (37.5-50.1)
[2021-01-16 06:11] LABS: Basophils % 0.1 %; Hemoglobin 11.4 g/dL (12.9-16.9); Immature Granulocytes % 0.5 % (0-4); Immature Platelets 6.4 % (1.1-6.1); Lymphocytes # 1.4 K/mcL (0.6-4.6); Lymphocytes % 11.2 %; Mean Corpuscular HGB Conc 33.3 g/dL (31.6-35.5); Mean Corpuscular Volume 99.1 fL (83.0-100.0); Mean Platelet Volume 12.7 fL (9.4-12.4); Monocytes # 0.6 K/mcL (0.0-1.3); Monocytes % 5.1 %; Red Blood Count 3.45 M/mcL (4.19-5.50); Red Cell Distribution Width 14.6 % (11.5-14.5); White Blood Count 12.1 K/mcL (4.3-11.1)
[2021-01-16 06:19] LABS: Platelet Count 73 K/mcL (140-400)
[2021-01-16 06:38] LABS: Calcium 8.6 mg/dL (8.6-10.3); Potassium 3.7 mEq/L (3.5-5.1)
[2021-01-16] MEDS: DilTIAZem 50 MG/50 ML IV.SOLN IVC SCH (10:43)
[2021-01-16] MEDS: Insulin LISPRO 300 UNITS/3 ML VIAL SUBQ SCH ×4 (10:49→20:36)
[2021-01-16] MEDS: *HR* OxyCODONE/APAP 5/325 TABLET PO PRN ×2 (15:31→23:19)
[2021-01-16 17:30] LABS: Creatinine,Urine 72 mg/dL; Sodium, Urine < 10.0 mEq/L
[2021-01-16] MEDS: Insulin DETEMIR 100 UNIT/ML X5UNITS SUBQ SCH (20:35)
[2021-01-17] MEDS: Piperacillin/Tazobactam 3.375 GM in 0.9 % Sodium Chloride Mini Bag 100 ML IVPB SCH ×3 (02:36→20:00)
[2021-01-17 02:55] LABS: Eosinophils % 1.4 %; Hemoglobin 9.9 g/dL (12.9-16.9); Immature Granulocytes % 0.5 % (0-4); Monocytes % 5.7 %
[2021-01-17 02:56] LABS: Calcium 8.1 mg/dL (8.6-10.3); Potassium 3.6 mEq/L (3.5-5.1)
[2021-01-17 02:58] LABS: Basophils % 0.1 %; Eosinophils # 0.2 K/mcL (0.0-0.6); Hematocrit 30.4 % (37.5-50.1); Immature Platelets 10.8 % (1.1-6.1); Lymphocytes # 1.2 K/mcL (0.6-4.6); Lymphocytes % 10.8 %; Mean Corpuscular HGB Conc 32.6 g/dL (31.6-35.5); Mean Corpuscular Hemoglobin 32.4 pg (28.0-33.3); Mean Corpuscular Volume 99.3 fL (83.0-100.0); Mean Platelet Volume 12.8 fL (9.4-12.4); Monocytes # 0.6 K/mcL (0.0-1.3); Neutrophils # 9.1 K/mcL (1.6-8.9); Red Blood Count 3.06 M/mcL (4.19-5.50); Red Cell Distribution Width 14.6 % (11.5-14.5); Segmented Neutrophils % 81.5 %; White Blood Count 11.2 K/mcL (4.3-11.1)
[2021-01-17 03:05] LABS: Platelet Count 68 K/mcL (140-400)
[2021-01-17] MEDS: Insulin LISPRO 300 UNITS/3 ML VIAL SUBQ SCH ×4 (09:25→20:04)
[2021-01-17] MEDS: DilTIAZem 50 MG/50 ML IV.SOLN IVC SCH (12:24)
[2021-01-17] MEDS: Insulin DETEMIR 100 UNIT/ML X5UNITS SUBQ SCH (20:08)
[2021-01-18] MEDS: Piperacillin/Tazobactam 3.375 GM in 0.9 % Sodium Chloride Mini Bag 100 ML IVPB SCH ×3 (03:55→20:38)
[2021-01-18 09:13] LABS: Mean Platelet Volume 12.8 fL (9.4-12.4)
[2021-01-18 09:15] LABS: Basophils % 0.2 %; Eosinophils # 0.2 K/mcL (0.0-0.6); Eosinophils % 1.6 %; Hematocrit 30.5 % (37.5-50.1); Hemoglobin 10.1 g/dL (12.9-16.9); Immature Granulocytes % 0.6 % (0-4); Immature Platelets 8.7 % (1.1-6.1); Lymphocytes # 1.4 K/mcL (0.6-4.6); Lymphocytes % 14.7 %; Mean Corpuscular HGB Conc 33.1 g/dL (31.6-35.5); Mean Corpuscular Hemoglobin 32.5 pg (28.0-33.3); Mean Corpuscular Volume 98.1 fL (83.0-100.0); Monocytes # 0.6 K/mcL (0.0-1.3); Monocytes % 6.4 %; Neutrophils # 7.1 K/mcL (1.6-8.9); Red Blood Count 3.11 M/mcL (4.19-5.50); Red Cell Distribution Width 14.3 % (11.5-14.5); Segmented Neutrophils % 76.5 %; White Blood Count 9.3 K/mcL (4.3-11.1)
[2021-01-18 09:17] LABS: Platelet Count 78 K/mcL (140-400)
[2021-01-18] MEDS: Insulin LISPRO 300 UNITS/3 ML VIAL SUBQ SCH ×4 (09:25→20:38)
[2021-01-18 09:31] LABS: Calcium 8.2 mg/dL (8.6-10.3); Potassium 3.5 mEq/L (3.5-5.1)
[2021-01-18] MEDS: Insulin DETEMIR 100 UNIT/ML X5UNITS SUBQ SCH (20:43)
[2021-01-19 03:12] LABS: Hematocrit 29.3 % (37.5-50.1); Hemoglobin 9.7 g/dL (12.9-16.9); Immature Platelets 9.3 % (1.1-6.1); Mean Corpuscular HGB Conc 33.1 g/dL (31.6-35.5); Mean Corpuscular Hemoglobin 32.4 pg (28.0-33.3); Mean Platelet Volume 12.7 fL (9.4-12.4); Red Blood Count 2.99 M/mcL (4.19-5.50); Red Cell Distribution Width 13.9 % (11.5-14.5); White Blood Count 9.3 K/mcL (4.3-11.1)
[2021-01-19 03:25] LABS: Calcium 8.2 mg/dL (8.6-10.3); Potassium 3.6 mEq/L (3.5-5.1)
[2021-01-19] MEDS: Piperacillin/Tazobactam 3.375 GM in 0.9 % Sodium Chloride Mini Bag 100 ML IVPB SCH ×3 (03:40→19:55)
[2021-01-19] MEDS: Heparin 25,000UNIT/250ML 1/2NS 25,000 UNIT/250 ML IV.SOLN IVC SCH ×2 (09:16→09:17)
[2021-01-19] MEDS: Insulin LISPRO 300 UNITS/3 ML VIAL SUBQ SCH ×4 (09:17→19:58)
[2021-01-19] MEDS: Insulin DETEMIR 100 UNIT/ML X5UNITS SUBQ SCH (20:22)
[2021-01-20] MEDS: Melatonin 3 MG TABLET PO SCH ×2 (01:58→21:45)
[2021-01-20] MEDS: Piperacillin/Tazobactam 3.375 GM in 0.9 % Sodium Chloride Mini Bag 100 ML IVPB SCH ×3 (01:58→21:44)
[2021-01-20] MEDS: Insulin LISPRO 300 UNITS/3 ML VIAL SUBQ SCH ×4 (09:51→22:23)
[2021-01-20] MEDS: amLODIPine 5 MG TABLET PO SCH (09:55)
[2021-01-20] MEDS: Apixaban 5 MG TABLET PO SCH (21:44)
[2021-01-20] MEDS: Insulin DETEMIR 100 UNIT/ML X5UNITS SUBQ SCH (22:22)
[2021-01-21] MEDS: Piperacillin/Tazobactam 3.375 GM in 0.9 % Sodium Chloride Mini Bag 100 ML IVPB SCH ×3 (05:58→17:13)
[2021-01-21] MEDS: Insulin LISPRO 300 UNITS/3 ML VIAL SUBQ SCH ×4 (09:09→21:47)
[2021-01-21] MEDS: Apixaban 5 MG TABLET PO SCH ×2 (09:13→21:45)
[2021-01-21] MEDS: amLODIPine 5 MG TABLET PO SCH (09:13)
[2021-01-21 09:22] LABS: Basophils % 0.2 %; Eosinophils # 0.2 K/mcL (0.0-0.6); Eosinophils % 1.9 %; Hematocrit 30.7 % (37.5-50.1); Hemoglobin 10.1 g/dL (12.9-16.9); Immature Granulocytes % 0.9 % (0-4); Lymphocytes # 1.6 K/mcL (0.6-4.6); Lymphocytes % 18.1 %; Mean Corpuscular HGB Conc 32.9 g/dL (31.6-35.5); Mean Corpuscular Hemoglobin 32.8 pg (28.0-33.3); Mean Corpuscular Volume 99.7 fL (83.0-100.0); Mean Platelet Volume 12.5 fL (9.4-12.4); Monocytes # 0.5 K/mcL (0.0-1.3); Monocytes % 5.3 %; Neutrophils # 6.4 K/mcL (1.6-8.9); Platelet Count 168 K/mcL (140-400); Red Blood Count 3.08 M/mcL (4.19-5.50); Red Cell Distribution Width 14.1 % (11.5-14.5); Segmented Neutrophils % 73.6 %; White Blood Count 8.7 K/mcL (4.3-11.1)
[2021-01-21 09:41] LABS: Potassium 3.9 mEq/L (3.5-5.1)
[2021-01-21] MEDS: Insulin DETEMIR 100 UNIT/ML X5UNITS SUBQ SCH (21:47)
[2021-01-21] MEDS: Melatonin 3 MG TABLET PO SCH (21:47)
[2021-01-22] MEDS: Piperacillin/Tazobactam 3.375 GM in 0.9 % Sodium Chloride Mini Bag 100 ML IVPB SCH (02:35)
[2021-01-22 07:14] VITALS: BP 148/59
[2021-01-22] MEDS: Insulin LISPRO 300 UNITS/3 ML VIAL SUBQ SCH (11:05)
[2021-01-22] MEDS: Apixaban 5 MG TABLET PO SCH (11:06)
[2021-01-22] MEDS: amLODIPine 5 MG TABLET PO SCH (11:06)
== END 2021-01-22 13:00 | disposition home health service (06) | DRG 871 ==
LOC: 2NENU 15:45 → EMEROOARM 15:45 → SUATTDRO 18:54 → 2NENU 19:53
PROVIDERS: ADMIT Internal Medicine; ATTEND Student in an Organized Health Care Education/Training Program

== ENCOUNTER 2021-02-15 17:13 | Observation (INO) ==
[2021-02-15] MEDS ORDERED: Isovue-370 500 ML BOTTLE IVP ONE (18:15)
[2021-02-15 18:57] LABS: Basophils % 0.3 %; Eosinophils # 0.2 K/mcL (0.0-0.6); Eosinophils % 1.6 %; Hematocrit 34.7 % (37.5-50.1); Hemoglobin 11.2 g/dL (12.9-16.9); Immature Granulocytes % 0.4 % (0-4); Lymphocytes # 2.3 K/mcL (0.6-4.6); Lymphocytes % 20.1 %; Mean Corpuscular HGB Conc 32.3 g/dL (31.6-35.5); Mean Corpuscular Hemoglobin 31.2 pg (28.0-33.3); Mean Corpuscular Volume 96.7 fL (83.0-100.0); Mean Platelet Volume 12.2 fL (9.4-12.4); Monocytes % 8.3 %; Platelet Count 144 K/mcL (140-400); Red Blood Count 3.59 M/mcL (4.19-5.50); Red Cell Distribution Width 13.9 % (11.5-14.5); Segmented Neutrophils % 69.3 %; White Blood Count 11.6 K/mcL (4.3-11.1)
[2021-02-15 19:26] LABS: Albumin 3.4 g/dL (3.5-5.7); Albumin/Globulin Ratio 1.3 (1.1-2.2); Bilirubin,Direct 0.3 mg/dL (0.0-0.2); Bilirubin,Indirect 0.6 mg/dL (0.0-1.0); Bilirubin,Total 0.9 mg/dL (0.3-1.0); Calcium 8.6 mg/dL (8.6-10.3); Globulin 2.7 g/dL (2.4-3.5); Potassium 4.4 mEq/L (3.5-5.1); Total Protein 6.1 g/dL (6.4-8.9)
[2021-02-15] MEDS ORDERED: *HR* FentaNYL (PF) 100 MCG/2 ML VIAL IVP ONE (19:53)
[2021-02-15] MEDS ORDERED: Furosemide 40 MG/4 ML VIAL IVP ONE (19:54)
[2021-02-15] MEDS ORDERED: Naloxone 0.4 MG/ML INJ IVP PRN (20:30)
[2021-02-15] MEDS ORDERED: Acetaminophen 325 MG TABLET PO PRN (20:30)
[2021-02-15] MEDS ORDERED: Ondansetron ODT 4 MG TAB.RAPDIS SL PRN (20:30)
[2021-02-15] MEDS ORDERED: Dextrose Gel 15 GM/37.5 ML TUBE PO PRN ×2 (20:37)
[2021-02-15] MEDS ORDERED: *HR* Dextrose 50 % in Water (Vial) 50 ML VIAL IVP PRN (20:37)
[2021-02-15] MEDS ORDERED: D5% in Water 1,000 ML IVC PRN (20:37)
[2021-02-15 21:26] LABS: Bilirubin,Urine Negative (Negative); Blood,Urine Negative (Negative); Clarity,Urine Clear (Clear); Color,Urine Colorless (Yellow); Glucose,Urine (UA) Normal (Normal); Ketones,Urine Negative (Negative); Leukocyte Esterase,Urine Negative (Negative); Nitrite,Urine Negative (Negative); PH,Urine 6.5 pH Units (5.0-8.0); Protein,Urine Negative (Neg-Trace); Specific Gravity,Urine 1.006 (1.010-1.025); Urobilinogen,Urine Normal (Normal)
[2021-02-15] MEDS: Apixaban 5 MG TABLET PO SCH (22:05)
[2021-02-15] MEDS: Sucralfate 1 GM TABLET PO SCH (22:05)
[2021-02-15] MEDS: Gabapentin 300 MG CAPSULE PO SCH (22:05)
[2021-02-15] MEDS: Insulin LISPRO 300 UNITS/3 ML VIAL SUBQ SCH (22:06)
[2021-02-16 03:06] LABS: Hematocrit 33.5 % (37.5-50.1); Hemoglobin 10.8 g/dL (12.9-16.9); Immature Platelets 6.3 % (1.1-6.1); Mean Corpuscular HGB Conc 32.2 g/dL (31.6-35.5); Mean Corpuscular Hemoglobin 31.5 pg (28.0-33.3); Mean Corpuscular Volume 97.7 fL (83.0-100.0); Mean Platelet Volume 11.8 fL (9.4-12.4); Red Blood Count 3.43 M/mcL (4.19-5.50); Red Cell Distribution Width 13.9 % (11.5-14.5); White Blood Count 7.5 K/mcL (4.3-11.1)
[2021-02-16 03:22] LABS: Calcium 8.6 mg/dL (8.6-10.3); Potassium 4.1 mEq/L (3.5-5.1)
[2021-02-16] MEDS ORDERED: Insulin DETEMIR 100 UNIT/ML X5UNITS SUBQ SCH (09:00)
[2021-02-16] MEDS: Insulin LISPRO 300 UNITS/3 ML VIAL SUBQ SCH ×4 (11:48→21:46)
[2021-02-16] MEDS: Sucralfate 1 GM TABLET PO SCH ×4 (11:48→20:47)
[2021-02-16] MEDS: Apixaban 5 MG TABLET PO SCH ×2 (11:59→20:46)
[2021-02-16] MEDS: Aspirin Enteric Coated 81 MG Tablet PO SCH (11:59)
[2021-02-16] MEDS: Gabapentin 300 MG CAPSULE PO SCH ×2 (12:01→20:46)
[2021-02-16] MEDS: amLODIPine 5 MG TABLET PO SCH (12:01)
[2021-02-16] MEDS: Insulin DETEMIR 100 UNIT/ML X5UNITS SUBQ SCH (13:02)
[2021-02-17] MEDS: Insulin LISPRO 300 UNITS/3 ML VIAL SUBQ SCH ×4 (08:44→20:29)
[2021-02-17] MEDS: Aspirin Enteric Coated 81 MG Tablet PO SCH (08:48)
[2021-02-17] MEDS: Apixaban 5 MG TABLET PO SCH ×2 (08:48→20:29)
[2021-02-17] MEDS: amLODIPine 5 MG TABLET PO SCH (08:48)
[2021-02-17] MEDS: Gabapentin 300 MG CAPSULE PO SCH ×2 (08:48→20:28)
[2021-02-17] MEDS: Sucralfate 1 GM TABLET PO SCH ×4 (08:49→20:29)
[2021-02-17] MEDS: Insulin DETEMIR 100 UNIT/ML X5UNITS SUBQ SCH (08:59)
[2021-02-17 11:48] LABS: Hematocrit 32.5 % (37.5-50.1); Hemoglobin 10.4 g/dL (12.9-16.9); Mean Corpuscular Hemoglobin 31.3 pg (28.0-33.3); Mean Corpuscular Volume 97.9 fL (83.0-100.0); Mean Platelet Volume 11.8 fL (9.4-12.4); Platelet Count 149 K/mcL (140-400); Red Blood Count 3.32 M/mcL (4.19-5.50); Red Cell Distribution Width 13.8 % (11.5-14.5)
[2021-02-17 11:54] LABS: White Blood Count 14.5 K/mcL (4.3-11.1)
[2021-02-17 12:08] LABS: Albumin/Globulin Ratio 1.2 (1.1-2.2); Bilirubin,Total 2.7 mg/dL (0.3-1.0); Calcium 8.6 mg/dL (8.6-10.3); Globulin 2.5 g/dL (2.4-3.5); Potassium 4.3 mEq/L (3.5-5.1); Total Protein 5.5 g/dL (6.4-8.9)
[2021-02-18 03:22] LABS: Hemoglobin 9.6 g/dL (12.9-16.9); Mean Corpuscular Volume 96.8 fL (83.0-100.0); Mean Platelet Volume 11.6 fL (9.4-12.4); Platelet Count 144 K/mcL (140-400); Red Cell Distribution Width 13.9 % (11.5-14.5); White Blood Count 11.9 K/mcL (4.3-11.1)
[2021-02-18 03:30] LABS: Albumin 2.8 g/dL (3.5-5.7); Albumin/Globulin Ratio 1.3 (1.1-2.2); Bilirubin,Total 2.3 mg/dL (0.3-1.0); Calcium 8.3 mg/dL (8.6-10.3); Globulin 2.2 g/dL (2.4-3.5); Potassium 3.9 mEq/L (3.5-5.1)
[2021-02-18] MEDS: Insulin LISPRO 300 UNITS/3 ML VIAL SUBQ SCH ×4 (07:27→20:04)
[2021-02-18] MEDS: Sucralfate 1 GM TABLET PO SCH ×4 (08:30→21:54)
[2021-02-18] MEDS: amLODIPine 5 MG TABLET PO SCH (08:30)
[2021-02-18] MEDS: Gabapentin 300 MG CAPSULE PO SCH ×2 (08:30→20:04)
[2021-02-18] MEDS: Aspirin Enteric Coated 81 MG Tablet PO SCH (08:30)
[2021-02-18] MEDS: Apixaban 5 MG TABLET PO SCH ×2 (08:30→20:04)
[2021-02-18] MEDS: Insulin DETEMIR 100 UNIT/ML X5UNITS SUBQ SCH (11:57)
[2021-02-19 02:26] LABS: Hematocrit 31.7 % (37.5-50.1); Hemoglobin 10.1 g/dL (12.9-16.9); Mean Corpuscular HGB Conc 31.9 g/dL (31.6-35.5); Mean Corpuscular Hemoglobin 30.9 pg (28.0-33.3); Mean Corpuscular Volume 96.9 fL (83.0-100.0); Mean Platelet Volume 11.7 fL (9.4-12.4); Platelet Count 163 K/mcL (140-400); Red Blood Count 3.27 M/mcL (4.19-5.50); Red Cell Distribution Width 13.8 % (11.5-14.5); White Blood Count 9.4 K/mcL (4.3-11.1)
[2021-02-19 02:48] LABS: Albumin/Globulin Ratio 1.3 (1.1-2.2); Bilirubin,Total 1.2 mg/dL (0.3-1.0); Calcium 8.3 mg/dL (8.6-10.3); Globulin 2.4 g/dL (2.4-3.5); Total Protein 5.4 g/dL (6.4-8.9)
[2021-02-19] MEDS: Insulin LISPRO 300 UNITS/3 ML VIAL SUBQ SCH ×2 (08:06→12:27)
[2021-02-19] MEDS: Aspirin Enteric Coated 81 MG Tablet PO SCH (08:24)
[2021-02-19] MEDS: Insulin DETEMIR 100 UNIT/ML X5UNITS SUBQ SCH (08:24)
[2021-02-19] MEDS: Apixaban 5 MG TABLET PO SCH (08:25)
[2021-02-19] MEDS: Sucralfate 1 GM TABLET PO SCH ×2 (08:25→12:32)
[2021-02-19] MEDS: Gabapentin 300 MG CAPSULE PO SCH (08:25)
[2021-02-19] MEDS: amLODIPine 5 MG TABLET PO SCH (08:25)
[2021-02-19 12:07] VITALS: BP 116/61
== END 2021-02-19 15:20 | disposition home health service (06) ==
LOC: EMEROOARM 17:13 → 3BNU 17:13 → SUATTDRO 20:56 → 3BNU 21:39
PROVIDERS: ADMIT Internal Medicine; ATTEND Registered Nurse